=== PATIENT | female | born 1970 | race Caucasian/White ===

== ENCOUNTER → 2016-04-26 | Outpatient (CLI) | payer BC ==
--- NOTE | 2016-04-26 15:20 | WOMENS IMAGING REPORT ---
EXAM DESCRIPTION: BILAT SCREENING MAMMO W/CAD COMPLETED DATE/TIME: 04/26/2016 2:05 pm REASON FOR STUDY: Z12.31, ROUTINE SCREENING MAMMO Z12.31 ENCNTR SCREEN MAMMOGRAM FOR MALIGNANT NEOP LASM OF GOOD COMPARISON: 2011 to 2014 TECHNIQUE: Standard craniocaudal and mediolateral oblique views of each breast recorded using digita l acquisition. LIMITATIONS: None. FINDINGS: No masses, calcifications or architectural distortion. No areas of suspicion. Read with the assistance of CAD. .[facility] - R2 Cenova Version 1.3 .[facility] - R2 Cenova Version 1.3 .[facility] - R2 Cenova Version 2.4 .[facility] - R2 Cenova Version 2.4 .[facility] - R2 Cann[employer] T[employer] Engineer Version 9.2 BREAST DENSITY: b. There are scattered areas of fibroglandular density. BIRAD: 1 NEGATIVE RECOMMENDATION: ROUTINE SCREENING COMMENT: PATIENT NOTIFIED BY LETTER. The [employer] recommends an annual screening mammogram for women aged 40 years or over. Each patient will receive a reminder prior to the anniversary date of her mammogram. The [employer] (ACR) has developed recommendations for screening MRI of the breast s in certain patient populations, to be used in conjunction with mammography. Breast MRI surveillanc e may be appropriate for women with more than 20% lifetime risk of developing breast cancer as deter mined by genetic testing, significant family history of the disease, or history of mantle radiation f or Hodgkins Disease. ACR Practice Guidelines 2008. TECHNICAL DOCUMENTATION: FINDING NUMBER: (1) ASSESSMENT: (1) JOB ID: [id number] [email or web address]- All Rights Reserved
== END ==
LOC: WI 10:53
PROVIDERS: ATTEND Nurse Practitioner Family
DX: Z12.31 Encounter for screening mammogram for malignant neoplasm of breast (principal)
CPT/HCPCS: 77067; G0202

== ENCOUNTER → 2016-06-07 | Outpatient (CLI) | payer BC | LOC: RAD 07:21 | PROVIDERS: ATTEND Family Medicine | DX: M54.5 Low back pain (principal); N20.0 Calculus of kidney | CPT/HCPCS: 74176 ==

== ENCOUNTER 2016-09-18 11:20 | Emergency (ER) | payer BC ==
--- NOTE | 2016-09-18 12:17 | ER Document Report ---
ED Extremity Problem, Lower - General Mode of Arrival: Ambulatory Information source: Patient TRAVEL OUTSIDE OF THE [place] IN LAST 30 DAYS: No - HPI Patient complains to provider of: Swelling - left leg Location: Ankle - left, Knee - left, Leg - left Occurred: Other - 2 nights ago Context: denies: Recent immobilization, Recent surgery, Recent travel Recent injury: No Associated symptoms: Other - see notes above <SYEDA BRADLEY - Last Filed: 09/18/16 12:58> <HAYDEE MEDINA - Last Filed: 09/18/16 13:37> - General Chief Complaint: Leg Swelling Stated Complaint: POSSIBLE CLOT IN LEG Time Seen by Provider: 09/18/16 12:11 Notes: 46-year-old female with no history or family history of blood clots presents to the ED complaining of left leg swelling that started 2 nights ago. Patient reports that she has some pain with palpation around the knee and states that her skin is tight. Patient denies any chest pain or shortness of breath. Patient had a left leg surgery in September 2015 and renal surgery performed in July 2016, but denies any other recent surgeries. Patient denies any recent long travel or periods of immobilization. (SYEDA BRADLEY) - Related Data Allergies/Adverse Reactions: cefaclor [From Ceclor] Allergy (Verified 09/18/16 11:28) cephalexin monohydrate [From Keflex] Allergy (Verified 09/18/16 11:28) clindamycin [Clindamycin] Allergy (Verified 09/18/16 11:28) Penicillins Allergy (Verified 09/18/16 11:28) RASH , SWELLING OF THROAT Sulfa (Sulfonamide Antibiotics) Allergy (Verified 09/18/16 11:28) BEE STINGS Allergy (Uncoded 09/18/16 11:28) Swelling of Throat Past Medical History - General Information source: Patient - Social History Smoking Status: Current Every Day Smoker Chew tobacco use (# tins/day): No Frequency of alcohol use: Rare Drug Abuse: None Family History: Reviewed & Not Pertinent Patient has suicidal ideation: No Patient has homicidal ideation: No - Past Medical History Cardiac Medical History: Reports: Hx Hypercholesterolemia, Hx Hypertension Neurological Medical History: Reports: Hx Migraine. Denies: Hx Cerebrovascular Accident, Hx Seizures Endocrine Medical History: Reports: Hx Diabetes Mellitus Type 2 Renal/ Medical History: Denies: Hx Peritoneal Dialysis GI Medical History: Reports: Hx Hepatitis - HEP B, REC'D VACCINE SINCE FOR HEP A & B. Denies: Hx Ulcer Psychiatric Medical History: Reports: Hx Depression Infectious Medical History: Reports: Hx Hepatitis - HEP B, REC'D VACCINE SINCE FOR HEP A & B Past Surgical History: Reports: Hx Cholecystectomy, Hx Gastric Bypass Surgery, Hx Genitourinary Surgery - 2 kidney stones removed. July 2016, Hx Gynecologic Surgery - c section x 2, Hx Hysterectomy, Hx Orthopedic Surgery - left knee partial September 2015, Hx Tubal Ligation - Immunizations Hx Diphtheria, Pertussis, Tetanus Vaccination: Yes Hx Pneumococcal Vaccination: 04/07/13 <SYEDA BRADLEY - Last Filed: 09/18/16 12:58> Review of Systems - Review of Systems Constitutional: No symptoms reported EENT: No symptoms reported Cardiovascular: No symptoms reported. denies: Chest pain Respiratory: No symptoms reported. denies: Short of breath Gastrointestinal: No symptoms reported Genitourinary: No symptoms reported Female Genitourinary: No symptoms reported Musculoskeletal: See HPI, Leg swelling - left Skin: No symptoms reported Hematologic/Lymphatic: No symptoms reported Neurological/Psychological: No symptoms reported -: Yes All other systems reviewed and negative <SYEDA BRADLEY - Last Filed: 09/18/16 12:58> Physical Exam - General General appearance: Alert In distress: None - Respiratory Respiratory status: No respiratory distress Breath sounds: Normal - Cardiovascular Rhythm: Regular Murmur: Yes - 1/6 systolic murmur Friction rub: No Gallop: None auscultated Pulses: Normal: Dorsalis pedis - Extremities General upper extremity: Normal inspection, Normal ROM General lower extremity: Edema - 1+ pitting edema to the level of the left ankle and trace pitting edema to the level of the left knee., Normal ROM. No: Normal inspection <SYEDA BRADLEY - Last Filed: 09/18/16 12:58> - HEENT Head: Normocephalic, Atraumatic Extraocular movements intact: Yes Mouth/Lips: Normal Mucous membranes: Moist - Neurological Neuro grossly intact: Yes Cognition: Normal Orientation: AAOx4 - Psychological Associated symptoms: Normal affect, Normal mood <HAYDEE MEDINA - Last Filed: 09/18/16 13:37> - Vital signs Vitals: Resp 16 09/18/16 11:57 Course - Laboratory Result Diagrams: 09/18/16 12:50 09/18/16 12:50 <SYEDA BRADLEY - Last Filed: 09/18/16 12:58> - Laboratory Result Diagrams: 09/18/16 12:50 09/18/16 12:50 <HAYDEE MEDINA - Last Filed: 09/18/16 13:37> - Re-evaluation Re-evalutation: 09/18/16 13:36 She has mild leukocytosis of 10.7, she does have anemia with hemoglobin 9.0, platelets normal at 195. Coags normal, chemistries grossly unremarkable, venous Dopplers negative for DVT. Patient has had extensive surgery on this leg , swelling it is most likely dependent edema and related to vascular changes after surgery. Surgery is remote. Patient was counseled on using compression stockings and elevation. Increasing her walking. Will return for repeat ultrasound in 1 week should the pain and swelling continued. No evidence of compartment syndrome at this time. (HAYDEE MEDINA) - Vital Signs Vital signs: Temp Pulse Resp BP Pulse Ox 16 09/18/16 11:57 - Laboratory Laboratory results interpreted by me: 09/18/16 09/18/16 12:50 12:50 WBC 10.7 H Hgb 9.0 L Hct 29.5 L MCV 77 L MCH 23.3 L MCHC 30.4 L RDW 20.1 H Sodium 134.9 L Calcium 8.1 L Total Protein 6.2 L Albumin 3.3 L Discharge <SYEDA BRADLEY - Last Filed: 09/18/16 12:58> <HAYDEE MEDINA - Last Filed: 09/18/16 13:37> - Discharge Clinical Impression: Leg edema, left Condition: Stable Disposition: HOME, SELF-CARE Additional Instructions: There was no blood clot on your evaluation today. Should you continue to have swelling and pain in 1 week please return for repeat ultrasound. It is possible to miss a blood clot on the first ultrasound. You are anemic (your blood count is low). You will need to follow-up with your primary care physician to have this rechecked within the next month. Crystal Attestation: 09/18/16 13:37 I personally performed the services described in the documentation, reviewed and edited the documentation which was dictated to the scribe in my presence, and it accurately records my words and actions. (HAYDEE MEDINA) Scribe Documentation - Scribe Written by Crystal:: Crystal Abernathy, 09/18/2016 1323 acting as scribe for :: Na <SYEDA BRADLEY - Last Filed: 09/18/16 12:58>
[2016-09-18 13:07] LABS: ABSOLUTE BASOPHILS # (AUTO) 0.1 10^3/uL (0.0-0.2); ABSOLUTE EOSINOPHILS # (AUTO) 0.2 10^3/uL (0.0-0.6); ABSOLUTE LYMPHOCYTES (AUTO) 1.6 10^3/uL (0.5-4.7); ABSOLUTE MONOCYTES (AUTO) 1.1 10^3/uL (0.1-1.4); ABSOLUTE NEUT (AUTO) 7.8 10^3/uL (1.7-8.2); BASOPHILS % (AUTO) 0.5 % (0-2); EOSINOPHILS % (AUTO) 1.4 % (0-6); HEMATOCRIT 29.5 % (36.0-47.0); HGB HCT DIFFERENCE -2.5; LYMPHOCYTES % (AUTO) 14.7 % (13-45); MEAN CORPUSCULAR HEMOGLOBIN 23.3 pg (27.0-33.4); MEAN CORPUSCULAR HGB CONC 30.4 g/dL (32.0-36.0); MEAN CORPUSCULAR VOLUME 77 fl (80-97); MONOCYTES % (AUTO) 10.2 % (3-13); RED BLOOD COUNT 3.86 10^6/uL (3.72-5.28); RED CELL DISTRIBUTION WIDTH 20.1 % (11.5-14.0); SEGMENTED NEUTROPHILS % (AUTO) 73.2 % (42-78); WHITE BLOOD COUNT 10.7 10^3/uL (4.0-10.5)
[2016-09-18 13:13] LABS: PROTHROMBIN TIME 13.3 SEC (11.4-15.4)
[2016-09-18 13:23] LABS: ALANINE AMINOTRANSFERASE 16 U/L (9-52); ALBUMIN 3.3 g/dL (3.5-5.0); ALKALINE PHOSPHATASE 63 U/L (38-126); ANION GAP 8 (5-19); ASPARTATE AMINO TRANSFERASE 16 U/L (14-36); BILIRUBIN,DIRECT 0.4 mg/dL (0.0-0.4); BILIRUBIN,TOTAL 0.4 mg/dL (0.2-1.3); BLOOD UREA NITROGEN 11 mg/dL (7-20); CALCIUM 8.1 mg/dL (8.4-10.2); CARBON DIOXIDE 23 mmol/L (22-30); CHLORIDE 104 mmol/L (98-107); CREATININE RESULT 0.66 mg/dL (0.52-1.25); GLUCOSE 91 mg/dL (75-110); POTASSIUM 4.3 mmol/L (3.6-5.0); SODIUM 134.9 mmol/L (137-145); TOTAL PROTEIN 6.2 g/dL (6.3-8.2)
[2016-09-18 13:39] VITALS: BP 117/65
--- NOTE | 2016-09-18 16:01 | XCELERA REPORT ---
[address] [address] Lower Extremity Venous Evaluation Name: GUILHERME RICHARDS Age: 46 yrs Gender: Female : 1970 Patient Status: Emergency Patient Location: ER Study Date: 09/18/2016 01:03 PM Procedure: Color flow and duplex imaging of the veins of the left lower extremity as well as the right Common Femoral vein. Reason For Study: left leg swelling Ordering Physician: HAYDEE MEDINA Performed By: Natasha Holliday Right Sided Venous Evaluation The right common femoral vein is fully compressible. Spontaneous and phasic flow is present in the right common femoral vein. Left Sided Venous Evaluation Normal vessel filling wall to wall, compression and augmentation as well as Colour flow down to the infrageniculate veins. Interpretation Summary No duplex evidence of DVT or obstruction in the left lower extremity nor in the right Common Femoral vein. : HAYDEE MEDINA > Herbie Uribe
== END 2016-09-18 13:39 | disposition home or self-care (01) ==
LOC: ER 11:20
DX: R60.0 Localized edema (principal); M79.89 Other specified soft tissue disorders; F17.200 Nicotine dependence, unspecified, uncomplicated
CPT/HCPCS: 36415; 80053; 85025; 85610; 93971; 99284

== ENCOUNTER → 2016-09-20 | Outpatient (CLI) | payer BC ==
--- NOTE | 2016-09-22 09:04 | RADIOLOGY REPORT (SQ) ---
EXAM DESCRIPTION: MRI CERVICAL SPINE WITHOUT COMPLETED DATE/TIME: 09/20/2016 6:07 pm REASON FOR STUDY: RADICULOPATHY, LUMBOSACRAL REGION, CERVICAL REGION M54.17 RADICULOPATHY, LUMBOSAC RAL REGION COMPARISON: None. TECHNIQUE: Sagittal and Axial imaging includes T1, T2, STIR and gradient echo sequences. LIMITATIONS: None. FINDINGS: ALIGNMENT: Normal. VERTEBRAE: Intact. BONE MARROW: Normal. No marrow replacement or reactive changes. DISCS: Normal. No significant abnormal signal or loss of height. HARDWARE: None in the spine. CORD AND BASE OF BRAIN: Normal in size and signal intensity. SOFT TISSUES: No soft tissue masses. C1-C2: No significant spinal stenosis. C2-C3: No significant spinal stenosis or exit foraminal stenosis. C3-C4: No significant spinal stenosis or exit foraminal stenosis. C4-C5: No significant spinal stenosis or exit foraminal stenosis. C5-C6: No significant spinal stenosis or exit foraminal stenosis. C6-C7: No significant spinal stenosis or exit foraminal stenosis. C7-T1: No significant spinal stenosis or exit foraminal stenosis. UPPER THORACIC: Incompletely imaged. No significant spinal stenosis or exit foraminal stenosis. OTHER: No other significant finding. IMPRESSION: NORMAL MRI CERVICAL SPINE. TECHNICAL DOCUMENTATION: JOB ID: [id number] [employer]- All Rights Reserved
--- NOTE | 2016-09-22 09:07 | RADIOLOGY REPORT (SQ) ---
EXAM DESCRIPTION: MRI LUMBAR SPINE WITHOUT COMPLETED DATE/TIME: 09/20/2016 6:07 pm REASON FOR STUDY: RADICULOPATHY, LUMBOSACRAL REGION, CERVICAL REGION M54.17 RADICULOPATHY, LUMBOSAC RAL REGION COMPARISON: None. TECHNIQUE: Sagittal and Axial imaging includes T1, T2, STIR and gradient echo sequences. Coronal T2/ HASTE imaging. LIMITATIONS: None. FINDINGS: VISUALIZED UPPER ABDOMEN: Limited evaluation. No acute or suspicious findings suggested. SEGMENTATION: No transitional anatomy. The lowest well-developed disc space is labeled L5-S1. ALIGNMENT: Anatomic. VERTEBRAE: Intact. BONE MARROW: Normal. No marrow replacement or reactive changes. DISC SIGNAL: Normal. No significant abnormal signal or loss of height. POSTERIOR ELEMENTS: Generally intact. No pars defect evident. HARDWARE: None in the spine. CORD AND CONUS: Normal in size and signal intensity. Conus at the appropriate level. SOFT TISSUES: No aortic aneurysm seen. No bulky retroperitoneal adenopathy or mass. No paraspinal mas s or fluid. L1-L2: No significant spinal stenosis or exit foraminal stenosis. L2-L3: No significant spinal stenosis or exit foraminal stenosis. L3-L4: No significant spinal stenosis or exit foraminal stenosis. L4-L5: No significant spinal stenosis or exit foraminal stenosis. L5-S1: No significant spinal stenosis or exit foraminal stenosis. LOWER THORACIC: Incompletely imaged. No stenosis seen. SACRUM: Visualized upper sacrum intact. OTHER: No other significant findings. IMPRESSION: NORMAL MRI LUMBAR SPINE. TECHNICAL DOCUMENTATION: JOB ID: [id number] [employer]- All Rights Reserved
== END ==
LOC: RAD 16:33
PROVIDERS: ATTEND Physician Assistant
DX: M54.17 Radiculopathy, lumbosacral region (principal); M54.12 Radiculopathy, cervical region
CPT/HCPCS: 72141; 72148

== ENCOUNTER 2017-04-16 16:28 | Emergency (ER) | payer SELFPAY ==
--- NOTE | 2017-04-16 17:46 | ER Document Report ---
HPI - HPI Pain Level: 2 Context: 47 yo diabetic female c/o redness, swelling and pain to left middle and ring fingers x several weeks. Associated Symptoms: None Exacerbated by: Denies Relieved by: Denies - ROS Systems Reviewed and Negative: Yes All other systems reviewed and negative - REPRODUCTIVE Reproductive: DENIES: : Past Medical History - General Information source: Patient - Social History Smoking Status: Current Every Day Smoker Frequency of alcohol use: None Drug Abuse: None Lives with: Family Family History: Reviewed & Not Pertinent - Past Medical History Cardiac Medical History: Reports: Hx Hypercholesterolemia, Hx Hypertension Neurological Medical History: Reports: Hx Migraine. Denies: Hx Cerebrovascular Accident, Hx Seizures Endocrine Medical History: Reports: Hx Diabetes Mellitus Type 2 Renal/ Medical History: Denies: Hx Peritoneal Dialysis GI Medical History: Reports: Hx Hepatitis - HEP B, REC'D VACCINE SINCE FOR HEP A & B. Denies: Hx Ulcer Psychiatric Medical History: Reports: Hx Depression Infectious Medical History: Reports: Hx Hepatitis - HEP B, REC'D VACCINE SINCE FOR HEP A & B Past Surgical History: Reports: Hx Cholecystectomy, Hx Gastric Bypass Surgery, Hx Genitourinary Surgery - 2 kidney stones removed. July 2016, Hx Gynecologic Surgery - c section x 2, Hx Hysterectomy, Hx Orthopedic Surgery - left knee partial September 2015, Hx Tubal Ligation - Immunizations Hx Diphtheria, Pertussis, Tetanus Vaccination: Yes Hx Pneumococcal Vaccination: 04/07/13 Vertical Provider Document - CONSTITUTIONAL Agree With Documented VS: Yes Exam Limitations: No Limitations - INFECTION CONTROL TRAVEL OUTSIDE OF THE [place] IN LAST 30 DAYS: No - HEENT HEENT: Atraumatic, PERRLA - NECK Neck: Normal Inspection, Supple - RESPIRATORY O2 Sat by Pulse Oximetry: 96 - CARDIOVASCULAR Cardiovascular: Regular Rate, Regular Rhythm - NEURO Level of Consciousness: Awake, Alert, Appropriate - DERM Integumentary: Rash - 2 cm deep abrasion to left middle finger over proximal phalange and PIP. + draining paronychia to left ring finger. no felon. + erythema to lateral nail border Course - Re-evaluation Re-evalutation: 04/16/17 17:48 wound culture obtained. no sign of sepsis. no sign of joint infection. no circulatory compromise. home care, F/U with PCP, ED return precautions discussed with pt. pt agreeable with plan and stable for discharge 04/16/17 18:01 - Vital Signs Vital signs: Temp Pulse Resp BP Pulse Ox 98.4 F 78 16 145/72 H 96 04/16/17 16:41 04/16/17 16:41 04/16/17 16:41 04/16/17 16:41 04/16/17 16:41 Discharge - Discharge Clinical Impression: Paronychia, Cellulitis of finger of left hand Condition: Stable Disposition: HOME, SELF-CARE Instructions: Antibiotic Ointment Protection ([facility]), Antibiotic Therapy ([facility]), Cellulitis ([facility]), Paronychia ([facility]), Soap Cleansing ([facility]) Additional Instructions: wash wound with antibacterial soap and water apply antibiotic ointment and bandaid after cleaning take antibiotic as prescribed follow up with primary care return to ER for any worsening Prescriptions: Doxycycline Hyclate [Vibramycin] 100 mg PO BID #14 capsule Forms: Return to Work
[2017-04-16 18:11] VITALS: BP 140/69
== END 2017-04-16 18:10 | disposition home or self-care (01) ==
LOC: ER 16:28
DX: L03.012 Cellulitis of left finger (principal); R21 Rash and other nonspecific skin eruption; F17.200 Nicotine dependence, unspecified, uncomplicated; E78.00 Pure hypercholesterolemia, unspecified; I10 Essential (primary) hypertension; Z86.19 Personal history of other infectious and parasitic diseases
CPT/HCPCS: 87070; 87075; 87077; 87186; 87205; 99283

== ENCOUNTER 2017-04-26 14:36 | Emergency (ER) | payer BC ==
[2017-04-26] MEDS ORDERED: BUPIVACAINE HCL 0.5 % INJ/PF 30 ML SDV INJ ONE (15:34)
[2017-04-26] MEDS ORDERED: LIDOCAINE 1% INJ-PF (10 MG/ML) 30 ML SDV INJ ONE (15:34)
--- NOTE | 2017-04-26 15:38 | ER Document Report ---
ED Skin Rash/Insect Bite/Abscs - General Chief Complaint: Skin Problem Stated Complaint: LEFT HAND PAIN Time Seen by Provider: 04/26/17 15:26 Mode of Arrival: Ambulatory Information source: Patient TRAVEL OUTSIDE OF THE [place] IN LAST 30 DAYS: No - HPI Patient complains to provider of: Tender/swollen area Onset: Yesterday Quality of pain: Achy Severity: Moderate Notes: Patient arrives with complaints of pain to the left ring finger nail. Patient was seen here 10 days ago with paronychia which she had drained and was placed on doxycycline. She states that the infection around her fingernail has significantly improved. A few days ago part of her left ring finger nail became detached from the nail bed and she clipped it off but she has a piece that remains in place which is causing her pain. She denies fevers. She denies any numbness, tingling, weakness. She denies any nausea, vomiting, diarrhea. She denies any new injuries. She denies any difficulty with flexion or extension of the finger. She has no other complaints at this time. She would like the remainder of her nail to be removed as it keeps catching on things and is causing her pain. - Related Data Allergies/Adverse Reactions: cefaclor [From Ceclor] Allergy (Verified 04/16/17 16:32) cephalexin monohydrate [From Keflex] Allergy (Verified 04/16/17 16:32) clindamycin [Clindamycin] Allergy (Verified 04/16/17 16:32) Penicillins Allergy (Verified 04/16/17 16:32) RASH , SWELLING OF THROAT Sulfa (Sulfonamide Antibiotics) Allergy (Verified 04/16/17 16:32) BEE STINGS Allergy (Uncoded 04/16/17 16:32) Swelling of Throat Past Medical History - Social History Smoking Status: Unknown if Ever Smoked Family History: Reviewed & Not Pertinent - Past Medical History Cardiac Medical History: Reports: Hx Hypercholesterolemia, Hx Hypertension Neurological Medical History: Reports: Hx Migraine. Denies: Hx Cerebrovascular Accident, Hx Seizures Endocrine Medical History: Reports: Hx Diabetes Mellitus Type 2 Renal/ Medical History: Denies: Hx Peritoneal Dialysis GI Medical History: Reports: Hx Hepatitis - HEP B, REC'D VACCINE SINCE FOR HEP A & B. Denies: Hx Ulcer Psychiatric Medical History: Reports: Hx Depression Infectious Medical History: Reports: Hx Hepatitis - HEP B, REC'D VACCINE SINCE FOR HEP A & B Past Surgical History: Reports: Hx Cholecystectomy, Hx Gastric Bypass Surgery, Hx Genitourinary Surgery - 2 kidney stones removed. July 2016, Hx Gynecologic Surgery - c section x 2, Hx Hysterectomy, Hx Orthopedic Surgery - left knee partial September 2015, Hx Tubal Ligation - Immunizations Hx Diphtheria, Pertussis, Tetanus Vaccination: Yes Hx Pneumococcal Vaccination: 04/07/13 Review of Systems - Review of Systems -: Yes All other systems reviewed and negative Physical Exam - Vital signs Vitals: Temp Pulse Resp BP Pulse Ox 98.0 F 66 14 147/70 H 95 04/26/17 14:56 04/26/17 14:56 04/26/17 14:56 04/26/17 14:56 04/26/17 14:56 - Notes Notes: GENERAL: alert, cooperative, nontoxic, no distress. HEAD: normocephalic, atraumatic EYES: conjunctiva pink without discharge, no external redness or swelling. EARS: no external swelling, no external redness NOSE: atraumatic, no external swelling MOUTH/THROAT: mucous membranes moist and pink NECK: soft, supple, full range of motion, no meningismus. CHEST: no distress, lungs clear and equal throughout. No wheezing, rales, rhonchi. CARDIAC: regular rate and rhythm, no murmur, normal capillary refill, normal pulses. BACK: full range of motion, no CVA tenderness. EXTREMITIES: Small portion of nail left within the left ring finger. Healing skin around the base of the nail with no sign of felon. Normal cap refill and sensation. Mild tenderness to palpation of this area. Full range of motion of the finger with no sign of tenosynovitis. There is no redness streaking up the finger or hand. Compartments are soft. NEURO: alert and oriented 3, no focal deficits, full range of motion of all extremities. PYSCH: appropriate mood, affect. Patient is cooperative. SKIN: pink, warm, dry, no rash. Course - Re-evaluation Re-evalutation: 04/26/17 17:07 Patient is nontoxic appearing with stable vitals. Patient was seen here 10 days ago and had an infected left ring finger paronychia was placed on doxycycline. Things seem to heal quite nicely. Due to the fact that she had the nail infection, most of her nail had fallen off. She had one piece that was left that was causing her pain which she wanted removed. After digital block I was able to remove the portion of nail left. The wound appears to be healing quite nicely with no signs of infection currently. No redness or streaking up the finger or hand. No sign of tenosynovitis or felon. Patient will be discharged home with 5 days of doxycycline prophylactically. Follow-up for increased pain, fever, redness, drainage, any further concerns. The patient is noted to have elevated blood pressure during today's emergency department visit. The patient was informed of this finding. The patient was instructed that this may be related to pre-hypertension and requires further evaluation with a primary care provider. The patient has no hypertensive symptoms at this time. The patient's emergency department workup and current diagnosis were explained to the patient and or family. Follow-up instructions were provided. Medications if prescribed were discussed. Instructions for when to return to the emergency department including specific worrisome symptoms were discussed with the patient and/or family. - Vital Signs Vital signs: Temp Pulse Resp BP Pulse Ox 98.0 F 66 14 147/70 H 95 04/26/17 14:56 04/26/17 14:56 04/26/17 14:56 04/26/17 14:56 04/26/17 14:56 Procedures - Nail Trephanation/Removal left ring finger Notes: 04/26/17 17:09 Digital block performed with 1% lidocaine and half percent bupivacaine. Skin was prepped with Shur-Clens and the remainder of the nail was removed from the left ring finger. No pus or drainage noted with removal. Patient tolerated the procedure well with no immediate complications. Sterile dressing was applied to the area. Normal cap refill post procedure. Discharge - Discharge Clinical Impression: Ingrown nail Condition: Stable Disposition: HOME, SELF-CARE Instructions: Ingrown Nail ([facility]) Additional Instructions: Keep wound clean and dry. Soak wound in soapy warm water. Follow-up for increased pain, fever, numbness, tingling, weakness, increased redness, or for any further concerns. Your blood pressure was elevated during today's visit. Have this rechecked with your doctor. Prescriptions: Doxycycline Hyclate 100 mg PO BID #10 capsule Forms: Elevated Blood Pressure, Smoking Cessation Education
[2017-04-26 17:19] VITALS: BP 122/71
== END 2017-04-26 17:19 | disposition home or self-care (01) ==
LOC: ER 14:36
PROC: 0HBQXZZ Excision of Finger Nail, External Approach (ICD-10-PCS; principal; 2017-04-26)
DX: L60.0 Ingrowing nail (principal); M79.642 Pain in left hand
CPT/HCPCS: 99283; 11750; J3490

== ENCOUNTER 2017-05-09 10:13 | Emergency (ER) | payer BC ==
[2017-05-09] MEDS ORDERED: LEVOFLOXACIN 500 MG TABLET PO ONE (11:19)
[2017-05-09] MEDS ORDERED: BUTALB/ACETAMINOPHEN/CAFFEINE 1 TAB EACH PO ONE (11:19)
--- NOTE | 2017-05-09 11:22 | ER Document Report ---
HPI - HPI Patient complains to provider of: Finger infection Onset: Other - 04/16/2017 Onset/Duration: Persistent, Better Quality of pain: Achy Pain Level: 2 Context: Patient states that she has been treated for a finger infection since 16 April. Patient states that it started after pulling on the cuticle that got infected. Patient does have a history of diabetes. Patient denies any fever. Patient states that the finger has been mildly red and has had some purulent drainage. Patient does complain of headache pain to the occipital area and describes this as a typical tension headache that she has. Patient states she normally takes Fioricet to help with her headaches but is out of this medication at this time. Patient complains of increased stress which she feels is prompting her headaches. Patient states her stress is due to her son's heroin addiction. Patient with multiple drug allergies. Patient had last taken doxycycline. Associated Symptoms: Headache, Other - Left fourth finger tenderness. denies: Fever, Vomiting Exacerbated by: Movement Relieved by: Denies Similar symptoms previously: Yes Recently seen / treated by doctor: Yes - ROS ROS below otherwise negative: Yes Systems Reviewed and Negative: Yes All other systems reviewed and negative - CONSTITUTIONAL Constitutional: DENIES: Fever, Chills - NEURO Neurology: REPORTS: Headache. DENIES: Weakness, Vision blurred, Dizzinesss / Vertigo - GASTROINTESTINAL Gastrointestinal: REPORTS: Nausea. DENIES: Patient vomiting - REPRODUCTIVE Reproductive: DENIES: : - MUSCULOSKELETAL Musculoskeletal: REPORTS: Extremity pain - DERM Skin Color: Normal Past Medical History - General Information source: Patient - Social History Smoking Status: Current Every Day Smoker Chew tobacco use (# tins/day): No Frequency of alcohol use: Rare Drug Abuse: None Occupation: [employer] Lives with: Family Family History: Reviewed & Not Pertinent Patient has suicidal ideation: No Patient has homicidal ideation: No - Past Medical History Cardiac Medical History: Reports: Hx Hypercholesterolemia, Hx Hypertension Neurological Medical History: Reports: Hx Migraine. Denies: Hx Cerebrovascular Accident, Hx Seizures Endocrine Medical History: Reports: Hx Diabetes Mellitus Type 2 Renal/ Medical History: Denies: Hx Peritoneal Dialysis GI Medical History: Reports: Hx Hepatitis - HEP B, REC'D VACCINE SINCE FOR HEP A & B. Denies: Hx Ulcer Psychiatric Medical History: Reports: Hx Depression Infectious Medical History: Reports: Hx Hepatitis - HEP B, REC'D VACCINE SINCE FOR HEP A & B Past Surgical History: Reports: Hx Cholecystectomy, Hx Gastric Bypass Surgery, Hx Genitourinary Surgery - 2 kidney stones removed. July 2016, Hx Gynecologic Surgery - c section x 2, Hx Hysterectomy, Hx Orthopedic Surgery - left knee partial September 2015, Hx Tubal Ligation - Immunizations Hx Diphtheria, Pertussis, Tetanus Vaccination: Yes Hx Pneumococcal Vaccination: 04/07/13 Vertical Provider Document - CONSTITUTIONAL Agree With Documented VS: Yes Exam Limitations: No Limitations General Appearance: WD/WN, No Apparent Distress - INFECTION CONTROL TRAVEL OUTSIDE OF THE [place] IN LAST 30 DAYS: No - HEENT HEENT: Atraumatic, Normal ENT Exam, Normocephalic - NECK Neck: Supple Notes: Patient with posterior cervical paraspinal tenderness, no midline tenderness, step-off or deformity. No meningismus - RESPIRATORY Respiratory: Breath Sounds Normal, No Respiratory Distress - CARDIOVASCULAR Cardiovascular: Regular Rate, Regular Rhythm, No Murmur Pulses: Normal: Radial - BACK Back: Normal Inspection - MUSCULOSKELETAL/EXTREMETIES Musculoskeletal/Extremeties: MAEW, Tender - Tenderness to left fourth fingertip. Nail removed, patient with minimal yellow drainage from wound bed. Minimal erythema to fingertip. No concern for felon., Edema - NEURO Level of Consciousness: Awake, Alert, Appropriate Motor/Sensory: No Motor Deficit - DERM Integumentary: Warm, Dry Notes: Paronychia left fourth finger Course - Re-evaluation Re-evalutation: 05/09/17 11:[address] Clements regarding patient management. Does agree with placing patient on Levaquin after reviewing her wound culture. Discussed side effect profile of medication risk for tendon rupture. Patient verbalized understanding and is agreeable to this plan of care at this time. The patient has been informed that they may have pre-hypertension or hypertension based on a blood pressure reading in the emergency department. I recommend that patient call the primary care provider listed on their discharge instructions or a physician of their choice by this week to arrange follow-up for further evaluation of possible pre-hypertension or hypertension. Controlled substance database reviewed Discharge - Discharge Clinical Impression: Paronychia of finger of left hand, Hx of essential hypertension Headache Qualifiers: Headache type: unspecified Headache chronicity pattern: acute headache Intractability: not intractable Qualified Code(s): R51 - Headache Condition: Stable Disposition: HOME, SELF-CARE Instructions: Headache ([facility]), Levofloxacin, Paronychia ([facility]) Additional Instructions: Return immediately for any new or worsening symptoms Followup with your primary care provider, call tomorrow to make a followup appointment Prescriptions: Butalb/Acetaminophen/Caffeine [Fioricet (50-325-40 mg) Tablet] 1 - 2 tab PO Q4H PRN #8 each PRN Reason: Levofloxacin [Levaquin 500 mg Tablet] 500 mg PO DAILY #6 tablet Forms: Elevated Blood Pressure, Smoking Cessation Education, Restricted Release , Return to Work Referrals: JAMAR PETTY NP [Primary Care Provider] - Follow up as needed
[2017-05-09 11:43] VITALS: BP 150/73
== END 2017-05-09 11:42 | disposition home or self-care (01) ==
LOC: ER 10:13
DX: L03.012 Cellulitis of left finger (principal); R51 Headache; I10 Essential (primary) hypertension; F17.200 Nicotine dependence, unspecified, uncomplicated; E78.00 Pure hypercholesterolemia, unspecified; E11.9 Type 2 diabetes mellitus without complications; Z87.442 Personal history of urinary calculi; Z90.710 Acquired absence of both cervix and uterus; Z98.84 Bariatric surgery status
CPT/HCPCS: 99282; J3490

== ENCOUNTER → 2017-05-21 | Outpatient (CLI) | payer BC ==
--- NOTE | 2017-05-21 08:51 | RADIOLOGY REPORT (SQ) ---
EXAM DESCRIPTION: KNEE RIGHT 3 VIEWS COMPLETED DATE/TIME: 05/21/2017 8:31 am REASON FOR STUDY: RIGHT KNEE PAIN (M25.561) M25.552 PAIN IN LEFT HIP M25.561 PAIN IN RIGHT KNEE COMPARISON: None. NUMBER OF VIEWS: Four views. TECHNIQUE: AP, lateral, and both oblique radiographic images acquired of the right knee. LIMITATIONS: None. FINDINGS: MINERALIZATION: Normal. BONES: There is osteophytic change of the lateral knee joint. Osteophytic change patellofemoral join t seen. JOINT: No effusion. SOFT TISSUES: No soft tissue swelling. No radio-opaque foreign body. IMPRESSION: Degenerative arthritis right knee. TECHNICAL DOCUMENTATION: JOB ID: [id number] 2010 [employer]- All Rights Reserved
--- NOTE | 2017-05-21 08:53 | RADIOLOGY REPORT (SQ) ---
EXAM DESCRIPTION: HIP LEFT AP/LATERAL COMPLETED DATE/TIME: 05/21/2017 8:31 am REASON FOR STUDY: LEFT HIP PAIN (M25.552) M25.552 PAIN IN LEFT HIP M25.561 PAIN IN RIGHT KNEE COMPARISON: None. NUMBER OF VIEWS: Two views. TECHNIQUE: AP pelvis and additional frog-leg view of the left hip. LIMITATIONS: None. FINDINGS: Minimal osteophytic change left femoral head suggesting degenerative arthritis. The SI david ints are symmetrical. Otherwise no acute fracture or bony abnormality seen. IMPRESSION: Minimal degenerative arthritis left hip. TECHNICAL DOCUMENTATION: JOB ID: [id number] 2010 [employer]- All Rights Reserved
== END ==
LOC: RAD 07:58
PROVIDERS: ATTEND Physician Assistant
DX: M25.552 Pain in left hip (principal); M25.561 Pain in right knee

== ENCOUNTER 2017-05-26 17:18 | Emergency (ER) | payer OTHER, BC ==
[2017-05-26] MEDS ORDERED: BUTALB/ACETAMINOPHEN/CAFFEINE 1 TAB EACH PO ONE (18:00)
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
[2017-05-26 19:59] VITALS: BP 165/91
== END 2017-05-26 20:00 | disposition home or self-care (01) ==
LOC: ER 17:18
DX: M62.830 Muscle spasm of back (principal); M54.2 Cervicalgia; M25.519 Pain in unspecified shoulder; Z79.899 Other long term (current) drug therapy; V87.7XXA Person injured in collision between other specified motor vehicles (traffic), initial encounter; F17.200 Nicotine dependence, unspecified, uncomplicated
CPT/HCPCS: 99284; 72125; J3490

== ENCOUNTER → 2017-07-03 | Outpatient (CLI) | payer BC ==
--- NOTE | 2017-07-03 10:30 | RADIOLOGY REPORT (SQ) ---
EXAM DESCRIPTION: MRI RT LOWER JOINT WITHOUT COMPLETED DATE/TIME: 07/03/2017 9:32 am REASON FOR STUDY: PAIN IN R KNEE M25.552 PAIN IN LEFT HIP M25.561 PAIN IN RIGHT KNEE COMPARISON: Right knee three views 05/21/2017 TECHNIQUE: Rightknee images acquired and stored on PACS. Multiplanar images include fat sensitive s equences as T1, water sensitive sequences as FST2 or STIR, cartilage sensitive sequences as FSPD, and gradient echo sequences. LIMITATIONS: None. FINDINGS: JOINT AND BURSAE: No effusion. BONE CORTEX AND MARROW: No alteration of signal to suggest marrow replacement. No worrisome bone lesi ons. No occult fracture. ACL: Intact. No degeneration or ganglion cyst. PCL: Intact. Multi septated ganglion cyst 3 x 1 x 1.3 cm in size along the dorsal aspect of the dist al posterior cruciate ligament best shown on coronal image 17 and sagittal image 10. MCL: Intact. No periligamentous edema or fluid. LCL: Intact. No periligamentous edema or fluid. MEDIAL MENISCUS: No tears. No abnormal signal. LATERAL MENISCUS: Horizontal tear mid body and posterior horn lateral meniscus on coronal images 15-1 7. MEDIAL COMPARTMENT: Cartilage preserved. No bone bruises or reactive marrow edema. No osteophytes. LATERAL COMPARTMENT: Mild chondromalacia. No bone bruises or reactive marrow edema. No osteophytes. PATELLA: High-grade lateral patellar facet chondromalacia, best shown on axial image 7. No subchondra l cysts. Medial and lateral retinacula intact. EXTENSOR MECHANISM: Intact. Quadriceps and patella tendons normal. SOFT TISSUES: Adjacent muscles and subcutaneous tissues normal. Normal flow void in popliteal artery and vein. OTHER: No other significant finding. IMPRESSION: Horizontal tear mid body and posterior horn lateral meniscus High-grade chondromalacia lateral patellar facet Small ganglion along the dorsal aspect of the distal attachment posterior cruciate ligament TECHNICAL DOCUMENTATION: JOB ID: [id number] [employer]- All Rights Reserved Reading location - IP/workstation name: [email or web address]
== END ==
LOC: RAD 08:23
PROVIDERS: ATTEND Physician Assistant
DX: M25.561 Pain in right knee (principal); M25.552 Pain in left hip; M22.41 Chondromalacia patellae, right knee

== ENCOUNTER 2017-07-22 19:42 | Emergency (ER) | payer BC, OTHER ==
--- NOTE | 2017-07-22 21:46 | RADIOLOGY REPORT (SQ) ---
EXAM DESCRIPTION: CHEST 2 VIEWS COMPLETED DATE/TIME: 07/22/2017 8:31 pm REASON FOR STUDY: cough COMPARISON: None. EXAM PARAMETERS: NUMBER OF VIEWS: two views TECHNIQUE: Digital Frontal and Lateral radiographic views of the chest acquired. RADIATION DOSE: NA LIMITATIONS: none FINDINGS: LUNGS AND PLEURA: No opacities, masses or pneumothorax. No pleural effusion. MEDIASTINUM AND HILAR STRUCTURES: No masses or contour abnormalities. HEART AND VASCULAR STRUCTURES: Heart normal size. No evidence for failure. BONES: No acute findings. HARDWARE: None in the chest. OTHER: No other significant finding. IMPRESSION: NO ACUTE RADIOGRAPHIC FINDING IN THE CHEST. TECHNICAL DOCUMENTATION: JOB ID: [id number] [employer]- All Rights Reserved Reading location - IP/workstation name: [email or web address]
[2017-07-22] MEDS ORDERED: IPRATROPIUM/ALBUTEROL 0.5-2.5 MG/3 ML AMPUL NEB ONE (23:03)
[2017-07-22] MEDS ORDERED: PREDNISONE 20 MG TABLET PO ONE (23:03)
--- NOTE | 2017-07-22 23:09 | ER Document Report ---
ED Respiratory Problem - General Chief Complaint: Chest Congestion Stated Complaint: CHEST CONGESTION Time Seen by Provider: 07/22/17 22:51 Mode of Arrival: Ambulatory Information source: Patient TRAVEL OUTSIDE OF THE [place] IN LAST 30 DAYS: No - HPI Patient complains to provider of: Cough Notes: Patient is here with complaints of cough, chest congestion, intermittent wheezing for the last week. She states that symptoms seem to be getting somewhat worse. She denies any fevers. She denies any chest pain. She denies any significant trouble breathing. No leg pain or swelling. No recent long trips or surgery, trauma, immobilization, hormones, cancer, history of DVT or PE. She is a smoker. She denies any chronic lung disease. She denies any abdominal pain. No nausea, vomiting, diarrhea. Nothing seems to make her symptoms better or worse. - Related Data Allergies/Adverse Reactions: cefaclor [From Ceclor] Allergy (Verified 04/16/17 16:32) cephalexin monohydrate [From Keflex] Allergy (Verified 04/16/17 16:32) clindamycin [Clindamycin] Allergy (Verified 04/16/17 16:32) Penicillins Allergy (Verified 04/16/17 16:32) RASH , SWELLING OF THROAT Sulfa (Sulfonamide Antibiotics) Allergy (Verified 04/16/17 16:32) BEE STINGS Allergy (Uncoded 04/16/17 16:32) Swelling of Throat Past Medical History - Social History Smoking Status: Current Every Day Smoker Chew tobacco use (# tins/day): No Frequency of alcohol use: None Drug Abuse: None Family History: Reviewed & Not Pertinent Patient has suicidal ideation: No Patient has homicidal ideation: No - Past Medical History Cardiac Medical History: Reports: Hx Hypercholesterolemia, Hx Hypertension Neurological Medical History: Reports: Hx Migraine. Denies: Hx Cerebrovascular Accident, Hx Seizures Endocrine Medical History: Reports: Hx Diabetes Mellitus Type 2 Renal/ Medical History: Denies: Hx Peritoneal Dialysis GI Medical History: Reports: Hx Hepatitis - HEP B, REC'D VACCINE SINCE FOR HEP A & B. Denies: Hx Ulcer Psychiatric Medical History: Reports: Hx Depression Infectious Medical History: Reports: Hx Hepatitis - HEP B, REC'D VACCINE SINCE FOR HEP A & B Past Surgical History: Reports: Hx Cholecystectomy, Hx Gastric Bypass Surgery, Hx Genitourinary Surgery - 2 kidney stones removed. July 2016, Hx Gynecologic Surgery - c section x 2, Hx Hysterectomy, Hx Orthopedic Surgery - left knee partial September 2015, Hx Tubal Ligation - Immunizations Hx Diphtheria, Pertussis, Tetanus Vaccination: Yes Hx Pneumococcal Vaccination: 04/07/13 Review of Systems - Review of Systems -: Yes All other systems reviewed and negative Physical Exam - Vital signs Vitals: Temp Pulse Resp BP Pulse Ox 98.5 F 72 19 130/62 H 96 07/22/17 20:04 07/22/17 20:04 07/22/17 20:04 07/22/17 20:04 07/22/17 20:04 - Notes Notes: GENERAL: alert, cooperative, nontoxic, no distress. HEAD: normocephalic, atraumatic EYES: conjunctiva pink without discharge, no external redness or swelling. EARS: no external swelling, no external redness, no mastoid redness, swelling, tenderness. Ear canals are clear without swelling or drainage. TMs pearly castrejon , no redness, no bulging, normal landmarks, no perforation. NOSE: atraumatic, no external swelling. clear rhinorrhea noted. MOUTH/THROAT: mucous membranes moist and pink, posterior pharynx without erythema, swelling, exudate. No trismus or drooling. NECK: soft, supple, full range of motion, no meningismus. CHEST: no distress, lungs clear and equal throughout. Few scattered expiratory wheezes throughout. No crackles or rhonchi. CARDIAC: regular rate and rhythm, no murmur, normal capillary refill, normal pulses. No peripheral edema noted. BACK: full range of motion, no CVA tenderness. EXTREMITIES: full range of motion of all extremities. No redness, no swelling. NEURO: alert and oriented A&O3, no focal deficits, full range of motion of all extremities. PYSCH: appropriate mood, affect. Patient is cooperative. SKIN: pink, warm, dry, no rash. Course - Re-evaluation Re-evalutation: 07/22/17 23:05 Well's Criteria for PE 0.0 points Low risk group: 1.3% chance of PE in an ED population. Another study assigned scores 4 as PE Unlikely and had a 3% incidence of PE. PERC Rule 0 criteria No need for further workup, as <2% chance of PE. If no criteria are positive and clinicians pre-test probability is <15%, PERC Rule criteria are satisfied. Patient is nontoxic appearing with stable vitals. She is here with cough and congestion for approximately 1 week. No fever. On exam she has a few scattered expiratory wheezes. She is not hypoxic and afebrile. Wells criteria she was very low risk for PE, PERC rule negative for PE, PE is very unlikely in this patient, therefore no further provocative testing is needed. Chest x-ray shows no acute abnormality. Patient likely has some mild bronchitis. She will be given penicillin and albuterol/Atrovent breathing treatment in the emergency department will be discharged home with prescription for albuterol inhaler with spacer, as well as prednisone. Follow-up with her doctor if not better in 1 week, sooner for worsening symptoms, high fever, difficulty breathing or swallowing, or for any further concerns. The patient is noted to have elevated blood pressure during today's emergency department visit. The patient was informed of this finding. The patient was instructed that this may be related to pre-hypertension and requires further evaluation with a primary care provider. The patient has no hypertensive symptoms at this time. The patient's emergency department workup and current diagnosis were explained to the patient and or family. Follow-up instructions were provided. Medications if prescribed were discussed. Instructions for when to return to the emergency department including specific worrisome symptoms were discussed with the patient and/or family. - Vital Signs Vital signs: Temp Pulse Resp BP Pulse Ox 98.5 F 72 19 130/62 H 96 07/22/17 20:04 07/22/17 20:04 07/22/17 20:04 07/22/17 20:04 07/22/17 20:04 - Diagnostic Test Radiology reviewed: Image reviewed, Reports reviewed - Negative chest x-ray Discharge - Discharge Clinical Impression: Bronchitis Condition: Stable Disposition: HOME, SELF-CARE Instructions: Bronchitis ([facility]), Family Physicians / Practices Additional Instructions: Take medications as prescribed. Follow-up with your doctor if not better in 1 week, sooner for increasing symptoms, high fever, significant chest pain, significant difficulty breathing, persistent vomiting, or for any further concerns. Your blood pressure was elevated during today's visit. Have this rechecked with your doctor. Please try to stop smoking. Prescriptions: Albuterol Sulfate [Proair HFA Inhalation Aerosol 8.5 gm MDI] 2 puff IH Q4H PRN # 1 mdi PRN Reason: Inhaler, Assist Devices [Space Chamber Plus] 1 each MC ASDIR PRN #1 spacer PRN Reason: Prednisone [Deltasone 20 mg Tablet] 3 tab PO DAILY 5 Days tablet Forms: Elevated Blood Pressure, Smoking Cessation Education Referrals: JAMAR PETTY BAGGAGE AGENT [Primary Care Provider] - Follow up as needed
[2017-07-22] MEDS ORDERED: PREDNISONE 20 MG TABLET ONE (23:31)
[2017-07-23 00:09] VITALS: BP 131/58
== END 2017-07-22 23:45 | disposition home or self-care (01) ==
LOC: ER 19:42
DX: J40 Bronchitis, not specified as acute or chronic (principal); R09.89 Other specified symptoms and signs involving the circulatory and respiratory systems; R05 Cough; R06.2 Wheezing; F17.200 Nicotine dependence, unspecified, uncomplicated; I10 Essential (primary) hypertension; E11.9 Type 2 diabetes mellitus without complications
CPT/HCPCS: 94640; 99284; 71046; J7512; J7620

== ENCOUNTER → 2017-07-30 | Outpatient (CLI) | payer BC ==
--- NOTE | 2017-07-30 10:12 | RADIOLOGY REPORT (SQ) ---
EXAM DESCRIPTION: MRI LT LOWER JOINT WITHOUT COMPLETED DATE/TIME: 07/30/2017 8:16 am REASON FOR STUDY: PAIN IN LEFT HIP (M25.552) M25.552 PAIN IN LEFT HIP COMPARISON: None. TECHNIQUE: Lefth[employer] images acquired and stored on PACS. Multiplanar images to include fat sensitive s equences as T1, fluid sensitive sequences as T2/STIR and gradient echo sequences. Large FOV fat and f luid sensitive sequences include pelvis and opposite hip. LIMITATIONS: None. FINDINGS: BONE CORTEX AND MARROW: No generalized marrow replacement. No occult fracture. No worriso me bone lesions. TARGETED HIP: FEMORAL HEAD: Normal morphology. No large osteophytes. ACETABULUM: No acetabular dysplasia. No subchondral cysts. LABRUM: Increased signal in the superior labrum series 9, image 15 and 16. TROCHANTER: No trochanteric bursal effusion. No edema/fluid at the insertions of the gluteus medius and gluteus minimus. OPPOSITE HIP: Limited evaluation. No worrisome bone lesions. No significant effusion. PELVIS, LOWER LUMBAR SPINE, SACROILIAC JOINTS: PELVIS : No insufficiency/stress fractures. No significant degenerative changes. Sacroiliac joints normal. L SPINE: No significant osteophytes or degenerative changes of the visualized lumbar spine. MUSCLES AND SOFT TISSUES: Adductors and piriformis normal. Abductors and greater trochanteric bursa n ormal without edema or fluid. Iliopsoas bursa without fluid. Hamstring attachments without edema or t ear. PELVIC SOFT TISSUES: No masses or adenopathy. SCIATIC NERVE: Identified, without masses or abnormal signal. OTHER: No other significant finding. IMPRESSION: Superior labral tear. Mild osteoarthritic changes. TECHNICAL DOCUMENTATION: JOB ID: [id number]- All Rights Reserved Reading location - IP/workstation name: [email or web address]
== END ==
LOC: RAD 07:22
PROVIDERS: ATTEND Physician Assistant
DX: M25.552 Pain in left hip (principal)

== ENCOUNTER → 2018-02-23 | Outpatient (CLI) | payer BC ==
[2018-02-23 09:19] LABS: ANION GAP 9 (5-19); BLOOD UREA NITROGEN 14 mg/dL (7-20); CALCIUM 9.2 mg/dL (8.4-10.2); CARBON DIOXIDE 29 mmol/L (22-30); CHLORIDE 105 mmol/L (98-107); GLUCOSE 93 mg/dL (75-110); SODIUM 142.6 mmol/L (137-145)
== END ==
LOC: LAB 08:32
PROVIDERS: ATTEND Orthopaedic Surgery Sports Medicine
DX: Z01.812 Encounter for preprocedural laboratory examination (principal)
CPT/HCPCS: 36415; 80048

== ENCOUNTER 2018-05-06 23:48 | Emergency (ER) | payer BC ==
[2018-05-07 00:08] VITALS: BP 122/63
--- NOTE | 2018-05-07 01:39 | RADIOLOGY REPORT (SQ) ---
EXAM DESCRIPTION: XR ANKLE 3 OR MORE VIEWS COMPLETED DATE/TME: 05/07/2018 00:00 CLINICAL HISTORY: 48 years, Female, fall COMPARISON: None. NUMBER OF VIEWS: TECHNIQUE: LIMITATIONS: None. FINDINGS: There is a questionable avulsion fracture coming off the lateral tarsal bones, seen only on the AP view. There is lateral soft tissue swelling. The ankle mortise appears intact. There is a plantar calcaneal spur. IMPRESSION: Questionable avulsion fracture involving the lateral tarsal bones. Clinical correlation, as to whether the patient has point tenderness in this region, would be helpful. copyright 2010 [employer]- All Rights Reserved
[2018-05-07] MEDS ORDERED: OXYCODONE-ACETAMINOPHEN 5-325 MG TABLET PO ONE (01:46)
[2018-05-07] MEDS ORDERED: ONDANSETRON 4 MG TAB.RAPDIS PO ONE (01:46)
--- NOTE | 2018-05-07 01:50 | ER Document Report ---
HPI - HPI Patient complains to provider of: right ankle injury Time Seen by Provider: 05/07/18 01:34 Pain Level: 3 Context: Patient is a 48-year-old female that comes to the emergency department for chief complaint of right ankle injury. She states she accidentally inverted her foot when walking because she stepped awkwardly. She states she felt a pop and developed pain and swelling afterwards. She denies any other injuries or any other complaints. She is not on a blood thinner. - REPRODUCTIVE Reproductive: DENIES: : Past Medical History - General Information source: Patient - Social History Smoking Status: Former Smoker Drug Abuse: None Lives with: Family Family History: Reviewed & Not Pertinent - Past Medical History Cardiac Medical History: Reports: Hx Hypercholesterolemia, Hx Hypertension Neurological Medical History: Reports: Hx Migraine. Denies: Hx Cerebrovascular Accident, Hx Seizures Endocrine Medical History: Reports: Hx Diabetes Mellitus Type 2 Renal/ Medical History: Denies: Hx Peritoneal Dialysis GI Medical History: Reports: Hx Hepatitis - HEP B, REC'D VACCINE SINCE FOR HEP A & B. Denies: Hx Ulcer Psychiatric Medical History: Reports: Hx Depression Infectious Medical History: Reports: Hx Hepatitis - HEP B, REC'D VACCINE SINCE FOR HEP A & B Past Surgical History: Reports: Hx Cholecystectomy, Hx Gastric Bypass Surgery, Hx Genitourinary Surgery - 2 kidney stones removed. July 2016, Hx Gynecologic Surgery - c section x 2, Hx Hysterectomy, Hx Orthopedic Surgery - left knee partial September 2015, Hx Tubal Ligation - Immunizations Hx Diphtheria, Pertussis, Tetanus Vaccination: Yes Hx Pneumococcal Vaccination: 04/07/13 Vertical Provider Document - CONSTITUTIONAL General Appearance: WD/WN, Mild Distress - patient uncomfortable but was not in distress - INFECTION CONTROL TRAVEL OUTSIDE OF THE [place] IN LAST 30 DAYS: No - HEENT HEENT: Atraumatic, Normal ENT Exam, Normocephalic - NECK Neck: Normal Inspection - RESPIRATORY Respiratory: Breath Sounds Normal, No Respiratory Distress - CARDIOVASCULAR Cardiovascular: Regular Rate, Regular Rhythm - GI/ABDOMEN Gastrointestinal: Abdomen Soft, Abdomen Non-Tender - BACK Back: Normal Inspection - MUSCULOSKELETAL/EXTREMETIES Musculoskeletal/Extremeties: MAEW, FROM, Tender - Soft tissue swelling over the lateral malleolus of the right ankle with tenderness in this location. Normal distal capillary refill and sensation. Normal leg, knee, hip exam on the same side. Unremarkable lower extremity exam otherwise. No open wounds. - NEURO Level of Consciousness: Awake, Alert, Appropriate - DERM Integumentary: Warm, Dry, No Rash Course - Re-evaluation Re-evalutation: Patient's physical examination and x-ray do suggest an avulsion fracture on the right ankle at the lateral malleolus. Discussed options, patient was placed in ankle stirrup with Navin wrap, placed on crutches, I did provide her with a small amount of pain relief because of the fracture on request, discussed close orthopedic follow-up and return precautions. Patient states understanding and agreement. - Vital Signs Vital signs: Temp Pulse Resp BP Pulse Ox 97.8 F 58 L 16 122/63 96 05/07/18 00:06 05/07/18 00:06 05/07/18 00:06 05/07/18 00:06 05/07/18 00:06 Procedures - Immobilization right ankle Immobilizer type: Navin wrap, Ankle stirrup Performed by: PCT Post-Proc Neuro Vasc Exam: Normal Alignment checked and good: Yes Discharge - Discharge Clinical Impression: Avulsion fracture Right ankle injury Qualifiers: Encounter type: initial encounter Qualified Code(s): S99.911A - Unspecified injury of right ankle, initial encounter Condition: Stable Disposition: HOME, SELF-CARE Additional Instructions: There is an avulsion fracture at the ankle. See details on this below. Wear the immobilization, use the crutches, ice, elevate, take anti-inflammatory for pain, take pain medication provided only if needed. Follow-up with the orthopedics referral for additional evaluation and management. Return for any concerning symptoms including severe swelling or pain. Avulsion Fracture of the Ankle There is a small chip fracture in your ankle. This fracture was caused by stretching the joint ligaments, which pulled off a small piece of bone. This injury is treated much the same as a severe sprain. At first, you should elevate, rest, and apply ice packs to the leg. Often, only an ankle brace or tape is necessary while the chip fracture heals. Sometimes a chip fracture of this type requires a cast or walking boot. The treatment plan may change, depending on how your ankle progresses. Chip fractures usually do not fuse back onto the bone, but rather scar down to the bone surface. You will most likely see this bone fragment on future x- rays. It's important that you follow the treatment program as outlined for now, then follow up for re-evaluation as scheduled. Call the doctor or return at once if pain or swelling becomes severe, or if you develop other unusual symptoms. Prescriptions: Morphine Sulfate [Morphine Ir 15 Mg Tablet] 15 mg PO TID #10 tablet Forms: Return to Work Referrals: ANUJA TURNER MD [ACTIVE STAFF] - Follow up in 3-5 days
== END 2018-05-07 03:24 | disposition home or self-care (01) ==
LOC: ER 23:48
DX: S82.891A Other fracture of right lower leg, initial encounter for closed fracture (principal); X50.0XXA Overexertion from strenuous movement or load, initial encounter; Y93.01 Activity, walking, marching and hiking; I10 Essential (primary) hypertension; E11.9 Type 2 diabetes mellitus without complications; Z98.84 Bariatric surgery status
CPT/HCPCS: 99283; 73610; L4350; S0119

== ENCOUNTER 2018-10-11 16:09 | Emergency (ER) | payer BC ==
--- NOTE | 2018-10-11 16:46 | ER Document Report ---
HPI - HPI Patient complains to provider of: Ear pain, eyelid swelling Time Seen by Provider: 10/11/18 16:29 Onset: Other - 2 days Onset/Duration: Persistent Quality of pain: Achy Pain Level: 2 Context: Patient presents complaining of ear pain and a sensation like her ears feel full. Patient complains of sinus congestion and periorbital swelling. Patient complains of eye itching. Patient denies any fever. Patient is concerned that she may be having allergy symptoms. Associated Symptoms: Earache, Rhinnorhea. denies: Fever, Sore throat Exacerbated by: Denies Relieved by: Denies Similar symptoms previously: Yes Recently seen / treated by doctor: No - ROS ROS below otherwise negative: Yes Systems Reviewed and Negative: Yes All other systems reviewed and negative - CONSTITUTIONAL Constitutional: DENIES: Fever, Chills - EENT EENT: REPORTS: Ear Pain, Nasal Drainage-Clear, Congestion, Eye problems. 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 Denies: Hx Cerebrovascular Accident, Hx Seizures Endocrine Medical History: Reports: Hx Diabetes Mellitus Type 2 Renal/ Medical History: Denies: Hx Peritoneal Dialysis GI Medical History: Reports: Hx Hepatitis - HEP B, REC'D VACCINE SINCE FOR HEP A & B. Denies: Hx Ulcer Psychiatric Medical History: Reports: Hx Depression Infectious Medical History: Reports: Hx Hepatitis - HEP B, REC'D VACCINE SINCE FOR HEP A & B Past Surgical History: Reports: Hx Cholecystectomy, Hx Gastric Bypass Surgery, Hx Genitourinary Surgery - 2 kidney stones removed. July 2016, Hx Gynecologic Surgery - c section x 2, Hx Hysterectomy, Hx Orthopedic Surgery - left knee partial September 2015, Hx Tubal Ligation - Immunizations Hx Diphtheria, Pertussis, Tetanus Vaccination: Yes Hx Pneumococcal Vaccination: 04/07/13 Vertical Provider Document - CONSTITUTIONAL Agree With Documented VS: Yes Exam Limitations: No Limitations General Appearance: WD/WN, No Apparent Distress - INFECTION CONTROL TRAVEL OUTSIDE OF THE [place] IN LAST 30 DAYS: No - HEENT HEENT: Atraumatic, Normocephalic. negative: Pharyngeal Exudate, Pharyngeal Tenderness, Pharyngeal Erythema, Tympanic Membrane Red Notes: Patient with bilateral periorbital erythema and mild swelling, patient with air- fluid level noted to right TM. Clear rhinorrhea with swollen nasal congestion. - NECK Neck: Normal Inspection, Supple. negative: Lymphadenopathy-Left, Lymphad enopathy-Right - RESPIRATORY Respiratory: Breath Sounds Normal, No Respiratory Distress - CARDIOVASCULAR Cardiovascular: Regular Rate, Regular Rhythm - BACK Back: Normal Inspection - MUSCULOSKELETAL/EXTREMETIES Musculoskeletal/Extremeties: MAEW - NEURO Level of Consciousness: Awake, Alert, Appropriate Motor/Sensory: No Motor Deficit - DERM Integumentary: Warm, Dry Course - Re-evaluation Re-evalutation: 10/11/18 16:43 Patient presents with symptoms worrisome for allergy symptoms. No concern for periorbital cellulitis. Discussed with patient taking [id number] antihistamine as well as Coricidin HBP to help with congestion symptoms. - Vital Signs Vital signs: Temp Pulse Resp BP Pulse Ox 98.3 F 53 L 16 118/63 95 10/11/18 16:28 10/11/18 16:28 10/11/18 16:28 10/11/18 16:28 10/11/18 16:28 Discharge - Discharge Clinical Impression: Nasal congestion Allergic rhinitis Qualifiers: Allergic rhinitis trigger: unspecified Allergic rhinitis seasonality: unspecified Qualified Code(s): J30.9 - Allergic rhinitis, unspecified Allergic conjunctivitis Qualifiers: Laterality: bilateral Qualified Code(s): H10.13 - Acute atopic conjunctivitis, bilateral Condition: Stable Disposition: HOME, SELF-CARE Instructions: Conjunctivitis, Allergic, Hay Fever ([facility]), Nasal Corticosteroid Inhaler ([facility]) Additional Instructions: Return immediately for any new or worsening symptoms Followup with your primary care provider, call tomorrow to make a followup appointment Continue to take your ponl-wmf-qhyrcul allergy medication You may take Coricidin HBP to help with congestion symptoms. Prescriptions: Fluticasone Propionate [Flonase Nasal [place] 50 Mcg/[place] 16 gm] 2 spray NASL DAILY #1 bottle Olopatadine HCl [Pataday] 1 drop OP DAILY #2.5 ml Forms: Smoking Cessation Education, Return to Work Referrals: JAMAR PETTY NP [Primary Care Provider] - Follow up as needed
[2018-10-11 19:16] VITALS: BP 131/65
== END 2018-10-11 19:22 | disposition home or self-care (01) ==
LOC: ER 16:09
DX: J30.9 Allergic rhinitis, unspecified (principal); R09.81 Nasal congestion; H92.03 Otalgia, bilateral; H57.89 Other specified disorders of eye and adnexa; J34.89 Other specified disorders of nose and nasal sinuses; F17.200 Nicotine dependence, unspecified, uncomplicated; I10 Essential (primary) hypertension; E11.9 Type 2 diabetes mellitus without complications
CPT/HCPCS: 99283

== ENCOUNTER → 2018-12-15 | Outpatient (CLI) | payer BC ==
--- NOTE | 2018-12-16 08:27 | RADIOLOGY REPORT (SQ) ---
EXAM DESCRIPTION: MRI RT UPPER JOINT WITHOUT COMPLETED DATE/TIME: 12/15/2018 2:55 pm REASON FOR STUDY: M25.511 PAIN IN RIGHT SHOULDER M25.511 PAIN IN RIGHT SHOULDER COMPARISON: Recent radiographs. TECHNIQUE: Right shoulder images acquired and stored on PACS. Multiplanar imaging to include fat sen sitive sequences such as T1, water sensitive sequences such as FST2/STIR, cartilage sensitive sequenc es such as FSPD/gradient-echo sequences. LIMITATIONS: None. FINDINGS: BONE MARROW AND CORTEX: No worrisome bone lesions or marrow replacement. No occult fractur es. JOINT OR BURSAL EFFUSION: No significant joint or bursal fluid. No suggestion of loose bodies. GLENO-HUMERAL ARTICULATION: Normal articulation. No subluxation. No cystic change. No osteophytes or cartilage loss. ACROMION AND AC JOINT: No bulky overgrowth. Mild degenerative changes. Subacromial space relative ly preserved. ROTATOR CUFF AND INTERVAL: Calcific tendinosis. No evidence of significant tear or atrophy. No rotator interval tear. No rotator interval thickening to suggest adhesive capsulitis. LABRUM AND BICEPS LABRAL COMPLEX: Intact. No labral tear. Intra-articular long-head biceps tendon n ormal. Distal biceps in normal location in bicipital groove. REMAINDER OF LABRUM AND IGHL : Probable tear in the posterior labrum. Adjacent periscapular ganglion or cysts may be present. Some of this may represent tortuous vessels. PERIARTICULAR AND ADJACENT SOFT TISSUES: As above. No axillary adenopathy. OTHER: No other significant finding. IMPRESSION: 1. Calcific tendinitis in the cuff. No significant tear. 2. Suspicious for tear in the posterior labrum. TECHNICAL DOCUMENTATION: JOB ID: [id number] [email or web address]- All Rights Reserved Reading location - IP/workstation name: [email or web address]
== END ==
LOC: RAD 13:53
PROVIDERS: ATTEND Pain Medicine Interventional Pain Medicine
DX: M75.31 Calcific tendinitis of right shoulder (principal); M25.511 Pain in right shoulder

== ENCOUNTER 2019-03-09 21:50 | Emergency (ER) | payer BC ==
--- NOTE | 2019-03-10 00:35 | RADIOLOGY REPORT (SQ) ---
EXAM DESCRIPTION: XR SHOULDER 2 OR MORE VIEWS COMPLETED DATE/TME: 03/09/2019 00:00 CLINICAL HISTORY: 49 years, Female, fell on left shoulder 4 weeks ago with persistent pain. COMPARISON: None. NUMBER OF VIEWS: TECHNIQUE: LIMITATIONS: None. FINDINGS: 3 views of the left shoulder were obtained. No fracture or dislocation. The acromioclavicular joint appears intact. There is a small amount of calcification in the region of the distal supraspinatus tendon, compatible with supraspinatus calcific tendinosis/tendinitis. There is also some calcification just superior to the glenoid. IMPRESSION: No fracture or dislocation. Supraspinatus calcific tendinosis/tendinitis. copyright 2010 [employer]- All Rights Reserved
[2019-03-10] MEDS ORDERED: KETOROLAC TROMETHAMINE 60 MG/2 ML SDV IM ONE (03:21)
[2019-03-10] MEDS ORDERED: BUTALB/ACETAMINOPHEN/CAFFEINE 1 TAB EACH PO ONE (03:22)
--- NOTE | 2019-03-10 03:29 | ER Document Report ---
ED General - General Chief Complaint: Shoulder Pain Stated Complaint: LEFT SHOULDER PAIN Time Seen by Provider: 03/10/19 03:12 Primary Care Provider: JAMAR PETTY NP [Primary Care Provider] - Follow up as needed Mode of Arrival: Ambulatory TRAVEL OUTSIDE OF THE [place] IN LAST 30 DAYS: No - HPI Onset: Other - 1 month ago Onset/Duration: Gradual Quality of pain: Throbbing Severity: Moderate Pain Level: 3 Similar symptoms previously: No Recently seen / treated by doctor: No Notes: 49 year old female with a history of Migraine Headaches, Chronic Pain, HTN, HLD, and DM here for left shoulder pain since falling and landing on her left shoulder 1 month ago. The patient says she has pain with movement of her left shoulder in most directons but it hurts her the most to move her arm backward. The patient is also here because she is out of [facility] and she has a pretty bad migraine headache. The patient says her current headache is exactly like previous migraine headaches. - Related Data Allergies/Adverse Reactions: cefaclor [From Ceclor] Allergy (Verified 10/11/18 16:13) cephalexin monohydrate [From Keflex] Allergy (Verified 10/11/18 16:13) clindamycin [Clindamycin] Allergy (Verified 10/11/18 16:13) Penicillins Allergy (Verified 10/11/18 16:13) RASH , SWELLING OF THROAT Sulfa (Sulfonamide Antibiotics) Allergy (Verified 10/11/18 16:13) BEE STINGS Allergy (Uncoded 10/11/18 16:13) Swelling of Throat Home Medications: percocet- in pain managaement Past Medical History - Social History Smoking Status: Current Every Day Smoker Frequency of alcohol use: Social Drug Abuse: None Family History: Reviewed & Not Pertinent Patient has suicidal ideation: No Patient has homicidal ideation: No - Past Medical History Cardiac Medical History: Reports: Hx Hypercholesterolemia, Hx Hypertension Neurological Medical History: Reports: Hx Migraine. Denies: Hx Cerebrovascular Accident, Hx Seizures Endocrine Medical History: Reports: Hx Diabetes Mellitus Type 2 Renal/ Medical History: Denies: Hx Peritoneal Dialysis GI Medical History: Reports: Hx Hepatitis - HEP B, REC'D VACCINE SINCE FOR HEP A & B. Denies: Hx Ulcer Psychiatric Medical History: Reports: Hx Depression Infectious Medical History: Reports: Hx Hepatitis - HEP B, REC'D VACCINE SINCE FOR HEP A & B Past Surgical History: Reports: Hx Cholecystectomy, Hx Gastric Bypass Surgery, Hx Genitourinary Surgery - 2 kidney stones removed. July 2016, Hx Gynecologic Surgery - c section x 2, Hx Hysterectomy, Hx Orthopedic Surgery - left knee partial September 2015, Hx Tubal Ligation - Immunizations Hx Diphtheria, Pertussis, Tetanus Vaccination: Yes Hx Pneumococcal Vaccination: 04/07/13 Review of Systems - Review of Systems Constitutional: No symptoms reported EENT: No symptoms reported Cardiovascular: No symptoms reported Respiratory: No symptoms reported Gastrointestinal: Nausea Genitourinary: No symptoms reported Female Genitourinary: No symptoms reported Musculoskeletal: No symptoms reported, Joint pain - left shoulder Skin: No symptoms reported Hematologic/Lymphatic: No symptoms reported Neurological/Psychological: Headaches Physical Exam - Vital signs Vitals: Temp Pulse Resp BP Pulse Ox 98.5 F 61 18 199/83 H 95 03/09/19 22:35 03/09/19 22:35 03/09/19 22:35 03/09/19 22:35 03/09/19 22:35 - Notes Notes: GENERAL: Well-appearing, well-nourished and in no acute distress. HEAD: Atraumatic, normocephalic. EYES: Pupils equal round and reactive to light, extraocular movements intact, sclera anicteric, conjunctiva are normal. ENT: TMs normal, nares patent, oropharynx clear without exudates. Moist mucous membranes. NECK: Normal range of motion, supple without lymphadenopathy or JVD. LUNGS: Breath sounds clear to auscultation bilaterally and equal. No wheezes rales or rhonchi. HEART: Regular rate and rhythm without murmurs, rubs or gallops. ABDOMEN: Soft, nontender, normoactive bowel sounds. No guarding, no rebound. No masses appreciated. EXTREMITIES: Decreased ROM of left shoulder due to pain but patient can move her shoulder in all directions. No pitting or edema. No clubbing or cyanosis. 2+ radial pulses. Normal left arm sensation and strength. NEUROLOGICAL: Cranial nerves II through XII grossly intact. Normal speech, normal gait. PSYCH: Normal mood, normal affect. SKIN: Warm, Dry, normal turgor, no rashes or lesions noted. Course - Re-evaluation Re-evalutation: 03/10/19 03:38 The patient has had left shoulder pain for a month now after she fell and landed it. Xray of her shoulder shows no acute process but possible rotator cuff tendonitis. Patient may have a rotator cuff injury as well given the duration of her shoulder pain. Plan to place patient in a shoulder sling and given IM Toradol in the ER. Patient is on chronic pain medications at home. Patient will also be given Fioricet for her headaches. Patient encouraged to follow up with her PCP and Orthopedics. - Vital Signs Vital signs: Temp Pulse Resp BP Pulse Ox 98.5 F 61 18 199/83 H 95 03/09/19 23:43 03/09/19 23:43 03/09/19 23:43 03/09/19 23:43 03/09/19 23:43 Discharge - Discharge Clinical Impression: Tendinitis, Migraine Shoulder pain Qualifiers: Chronicity: unspecified Laterality: left Qualified Code(s): M25.512 - Pain in left shoulder Condition: Stable Disposition: HOME, SELF-CARE Instructions: Tendonitis ([facility]), Shoulder Injury ([facility]), Migraine Headache ([facility]) Additional Instructions: Use a sling for your shoulder pain. Also use your previously prescribed pain medications and anti-inflammatory medications. Use Fioricet for headaches. Follow up with an Orthopedic Surgeon for your shoulder pain. Prescriptions: Butalb/Acetaminophen/Caffeine [Fioricet (50-325-40 mg) Tablet] 1 tab PO Q8H PRN #30 tab PRN Reason: Referrals: JAMAR PETTY NP [Primary Care Provider] - Follow up as needed ANUJA TURNER MD [ACTIVE STAFF] - Follow up as needed
[2019-03-10 04:02] VITALS: BP 170/83
== END 2019-03-10 04:02 | disposition home or self-care (01) ==
LOC: ER 21:50
DX: G43.909 Migraine, unspecified, not intractable, without status migrainosus (principal); M77.9 Enthesopathy, unspecified; G89.29 Other chronic pain; M25.512 Pain in left shoulder; F17.200 Nicotine dependence, unspecified, uncomplicated; I10 Essential (primary) hypertension; E78.00 Pure hypercholesterolemia, unspecified; Z88.3 Allergy status to other anti-infective agents; Z88.0 Allergy status to penicillin; Z91.030 Bee allergy status; Z88.2 Allergy status to sulfonamides
CPT/HCPCS: 73030; J3490; J1885; 96374; 99283

== ENCOUNTER 2019-06-07 17:38 | Emergency (ER) | payer BC ==
[2019-06-07] MEDS ORDERED: BUPIVACAINE HCL 0.5%/EPI 1:200000 INJ 1.8 ML CARTRIDGE INJ ONE (18:03)
--- NOTE | 2019-06-07 18:30 | RADIOLOGY REPORT (SQ) ---
EXAM DESCRIPTION: CHEST 2 VIEWS COMPLETED DATE/TIME: 06/07/2019 6:10 pm REASON FOR STUDY: cough COMPARISON: None. EXAM PARAMETERS: NUMBER OF VIEWS: two views TECHNIQUE: Digital Frontal and Lateral radiographic views of the chest acquired. RADIATION DOSE: NA LIMITATIONS: none FINDINGS: LUNGS AND PLEURA: No opacities, masses or pneumothorax. No pleural effusion. MEDIASTINUM AND HILAR STRUCTURES: No masses or contour abnormalities. HEART AND VASCULAR STRUCTURES: Heart normal size. No evidence for failure. BONES: No acute findings. HARDWARE: None in the chest. OTHER: No other significant finding. IMPRESSION: NO ACUTE RADIOGRAPHIC FINDING IN THE CHEST. TECHNICAL DOCUMENTATION: JOB ID: [id number] 2010 [email or web address]- All Rights Reserved Reading location - IP/workstation name: [email or web address]
--- NOTE | 2019-06-07 18:58 | ER Document Report ---
HPI - HPI Time Seen by Provider: 06/07/19 17:51 Pain Level: 5 Context: Patient is a 49-year-old female who presents to the emergency department with a chief complaint of left facial swelling and pain. Patient states that her symptoms started yesterday. Denies any fever or body aches. Patient admits to poor dental hygiene and tooth decay. She has not seen a dentist in regards to her teeth. - ROS Systems Reviewed and Negative: Yes All other systems reviewed and negative - CONSTITUTIONAL Constitutional: DENIES: Fever, Chills - EENT EENT: DENIES: Sore Throat, Ear Pain, Nasal Drainage-Clear, Nasal Drainage- Purulent, Congestion Notes: left upper teeth pain - NEURO Neurology: DENIES: Headache, Weakness, Vision blurred, Dizzinesss / Vertigo - RESPIRATORY Respiratory: DENIES: Trouble Breathing, Coughing - GASTROINTESTINAL Gastrointestinal: DENIES: Nausea, Patient vomiting - REPRODUCTIVE Reproductive: DENIES: : - MUSCULOSKELETAL Musculoskeletal: DENIES: Swelling - slight to upper jaw - DERM Skin Color: Normal Skin Problems: None Past Medical History - General Information source: Patient - Social History Smoking Status: Current Every Day Smoker Frequency of alcohol use: None Drug Abuse: None Family History: Reviewed & Not Pertinent Patient has suicidal ideation: No Patient has homicidal ideation: No - Past Medical History Cardiac Medical History: Reports: Hx Hypercholesterolemia, Hx Hypertension Neurological Medical History: Reports: Hx Migraine. Denies: Hx Cerebrovascular Accident, Hx Seizures Endocrine Medical History: Reports: Hx Diabetes Mellitus Type 2 Renal/ Medical History: Denies: Hx Peritoneal Dialysis GI Medical History: Reports: Hx Hepatitis - HEP B, REC'D VACCINE SINCE FOR HEP A & B. Denies: Hx Ulcer Psychiatric Medical History: Reports: Hx Depression Infectious Medical History: Reports: Hx Hepatitis - HEP B, REC'D VACCINE SINCE FOR HEP A & B Past Surgical History: Reports: Hx Cholecystectomy, Hx Gastric Bypass Surgery, Hx Genitourinary Surgery - 2 kidney stones removed. July 2016, Hx Gynecologic Surgery - c section x 2, Hx Hysterectomy, Hx Orthopedic Surgery - left knee partial September 2015, Hx Tubal Ligation - Immunizations Hx Diphtheria, Pertussis, Tetanus Vaccination: Yes Hx Pneumococcal Vaccination: 04/07/13 Vertical Provider Document - CONSTITUTIONAL Agree With Documented VS: Yes Exam Limitations: No Limitations General Appearance: No Apparent Distress - INFECTION CONTROL TRAVEL OUTSIDE OF THE [place] IN LAST 30 DAYS: No - HEENT HEENT: Atraumatic Mouth Diagram: 1 - multiple teeth with decay - NECK Neck: Normal Inspection - RESPIRATORY Respiratory: Breath Sounds Normal, No Respiratory Distress - CARDIOVASCULAR Cardiovascular: Regular Rate, Regular Rhythm, No Murmur Pulses: Normal: Radial - MUSCULOSKELETAL/EXTREMETIES Musculoskeletal/Extremeties: FROM - NEURO Level of Consciousness: Awake, Alert, Appropriate Motor/Sensory: No Motor Deficit, No Sensory Deficit, No Pronator Drift - DERM Integumentary: Warm, Dry, No Rash Course - Re-evaluation Re-evalutation: 06/07/19 20:10 Maxillary block done with Dr. Lloyd at bedside. 06/07/19 21:36 Patient had to be injected multiple times with bupivacaine to help with her pain. I was finally able to get her pain under control with the bupivacaine. Patient states that she will follow-up with the dentist. She will be started on metronidazole, as she is allergic to multiple antibiotics. Patient states that she has been on metronidazole before for dental pain. Verified via pharmacy records. Patient's blood pressure is elevated. Patient states that she took her blood pressure medication 30 minutes ago. Her blood pressure is also most likely elevated due to her vital signs being taken while she was still in pain. At this current time, she denies any pain and states that she is rather comfortable. x Airway is patent. Follow-up precautions were given. Verbal discharge instructions were given to the patient. They verbalized understanding. They are stable for discharge. - Vital Signs Vital signs: Temp Pulse Resp BP Pulse Ox 98.2 F 62 20 211/88 H 97 06/07/19 17:43 06/07/19 17:43 06/07/19 17:43 06/07/19 17:43 06/07/19 17:43 Discharge - Discharge Clinical Impression: Tooth pain, Facial swelling Condition: Stable Disposition: HOME, SELF-CARE Additional Instructions: You were seen today in the emergency department for facial swelling and dental pain. Please start your antibiotics as prescribed. [facility] visit. Your swelling is most likely due to an infected tooth. If your symptoms get worse, please return to the emergency department. You are being sent home with [place], medication for pain. You can take 1 tablet every 4-6 hours as needed. Prescriptions: Metronidazole 500 mg PO TID 7 Days #21 tablet Forms: Return to Work Referrals: MAICO VALENTE PA-C [PHYSICIAN MEDICAL STAFFING COORDINATOR] - Follow up as needed [facility] [Provider Group] - Follow up in 1 week
[2019-06-07] MEDS ORDERED: BUPIVACAINE HCL 0.25% /EPINEPHRINE INJ/PF 30 ML SDV INFIL PRN (20:20)
[2019-06-07] MEDS ORDERED: BUPIVACAINE HCL 0.5%-EPI 1:200000 INJ/PF 30 ML VIAL INJ ONE (20:30)
[2019-06-07] MEDS ORDERED: METRONIDAZOLE 500 MG TABLET PO ONE (21:08)
[2019-06-07] MEDS ORDERED: HYDROCODONE/ACETAMINOPHEN 5-325 MG (6 TAB/ER DISP) PO PRN (21:10)
[2019-06-07 21:43] VITALS: BP 193/87
== END 2019-06-07 21:47 | disposition home or self-care (01) ==
LOC: ER 17:38
DX: K08.9 Disorder of teeth and supporting structures, unspecified (principal); K02.9 Dental caries, unspecified; R22.0 Localized swelling, mass and lump, head; F17.200 Nicotine dependence, unspecified, uncomplicated; E78.00 Pure hypercholesterolemia, unspecified; I10 Essential (primary) hypertension; E11.9 Type 2 diabetes mellitus without complications; Z88.1 Allergy status to other antibiotic agents; Z90.49 Acquired absence of other specified parts of digestive tract; Z98.84 Bariatric surgery status
CPT/HCPCS: 99283; 71046; 64400; J3490 ×2

== ENCOUNTER 2019-07-06 14:59 | Emergency (ER) | payer BC ==
[2019-07-06 15:09] VITALS: BP 239/91
[2019-07-06] MEDS ORDERED: BUPIVACAINE HCL 0.5 % INJ/PF 30 ML SDV INJ ONE (15:11)
[2019-07-06] MEDS ORDERED: METRONIDAZOLE 500 MG TABLET PO ONE (15:12)
[2019-07-06] MEDS ORDERED: OXYCODONE-ACETAMINOPHEN 5-325 MG TABLET PO ONE (15:12)
[2019-07-06] MEDS ORDERED: LIDOCAINE 1% INJ-PF (10 MG/ML) 30 ML SDV INFIL ONE (15:12)
--- NOTE | 2019-07-06 15:35 | ER Document Report ---
HPI - HPI Time Seen by Provider: 07/06/19 15:02 Pain Level: 5 Notes: 49-year-old female patient presented to the emergency department chief complaint of dental pain. Patient reports significant pain around tooth #1, 2, 3 and 4. She states that she has been unable to get into her dentist. She has multiple medication allergies to antibiotics. The last time she has a dental infection she was placed on Levaquin and Flagyl. She is requesting a dental block. - CONSTITUTIONAL Constitutional: DENIES: Fever, Chills - REPRODUCTIVE Reproductive: DENIES: : Past Medical History - General Information source: Patient - Social History Smoking Status: Current Every Day Smoker Family History: Reviewed & Not Pertinent Patient has suicidal ideation: No Patient has homicidal ideation: No - Past Medical History Cardiac Medical History: Reports: Hx Hypercholesterolemia, Hx Hypertension Neurological Medical History: Reports: Hx Migraine. Denies: Hx Cerebrovascular Accident, Hx Seizures Endocrine Medical History: Reports: Hx Diabetes Mellitus Type 2 Renal/ Medical History: Denies: Hx Peritoneal Dialysis GI Medical History: Reports: Hx Hepatitis - HEP B, REC'D VACCINE SINCE FOR HEP A & B. Denies: Hx Ulcer Psychiatric Medical History: Reports: Hx Depression Infectious Medical History: Reports: Hx Hepatitis - HEP B, REC'D VACCINE SINCE FOR HEP A & B Past Surgical History: Reports: Hx Cholecystectomy, Hx Gastric Bypass Surgery, Hx Genitourinary Surgery - 2 kidney stones removed. July 2016, Hx Gynecologic Surgery - c section x 2, Hx Hysterectomy, Hx Orthopedic Surgery - left knee p artial September 2015, Hx Tubal Ligation - Immunizations Hx Diphtheria, Pertussis, Tetanus Vaccination: Yes Hx Pneumococcal Vaccination: 04/07/13 Vertical Provider Document - CONSTITUTIONAL Notes: PHYSICAL EXAMINATION: GENERAL: Well-appearing, well-nourished and in no acute distress. HEAD: Atraumatic, normocephalic. EYES: Pupils equal round extraocular movements intact, conjunctiva are normal. ENT: Nares patent, erythema surrounding tooth #1, 2, 3 and 4, multiple broken teeth noted. No obvious abscess noted. No trismus, no evidence of Ernesto's angina. NECK: Normal range of motion LUNGS: No respiratory distress Musculoskeletal: Normal range of motion NEUROLOGICAL: Normal speech, normal gait. PSYCH: Normal mood, normal affect. SKIN: Warm, Dry, normal turgor, no rashes or lesions noted. - INFECTION CONTROL TRAVEL OUTSIDE OF THE [place] IN LAST 30 DAYS: No Course - Re-evaluation Re-evalutation: Dental block performed per patient request. Good anesthesia achieved. Patient will be discharged on antibiotics and pain control. - Vital Signs Vital signs: Temp Pulse Resp BP Pulse Ox 98.4 F 62 18 239/91 H 94 07/06/19 15:06 07/06/19 15:06 07/06/19 15:06 07/06/19 15:06 07/06/19 15:06 Discharge - Discharge Clinical Impression: Dental infection Condition: Stable Disposition: HOME, SELF-CARE Additional Instructions: You have been seen for dental pain. It is very important that you follow-up with a dentist for definitive care. Please return if you develop fever greater than 101, swelling in your face, vomiting, difficulty breathing or swallowing, or any other symptoms that are concerning to you. For pain you should take ibuprofen 600 mg every 6 hours as needed. [facility] [phone] Prescriptions: Metronidazole [Flagyl 500 mg Tablet] 500 mg PO Q6H #28 tablet Levofloxacin [Levaquin 500 mg Tablet] 500 mg PO DAILY #7 tablet Hydrocodone/Acetaminophen [[place] 5-325 mg Tablet] 1 tab PO Q4H PRN #10 tablet PRN Reason: For Pain
== END 2019-07-06 15:46 | disposition home or self-care (01) ==
LOC: ER 14:59
DX: K04.7 Periapical abscess without sinus (principal); F17.200 Nicotine dependence, unspecified, uncomplicated; E11.9 Type 2 diabetes mellitus without complications; I10 Essential (primary) hypertension; Z88.1 Allergy status to other antibiotic agents
CPT/HCPCS: 99282; 64400; J3490 ×2

== ENCOUNTER 2019-07-18 11:32 | Emergency (ER) | payer BC ==
--- NOTE | 2019-07-18 12:29 | ER Document Report ---
ED Medical Screen (RME) - General Chief Complaint: Numbness of Arm Stated Complaint: HAND NUMBNESS Time Seen by Provider: 07/18/19 12:20 Primary Care Provider: JAMAR PETTY NP [Primary Care Provider] - Follow up as needed Notes: HPI: 49-year-old female with history of hypertension high cholesterol diabetes chronic pain and neuropathy presenting for numbness and weakness in the right upper extremity. Patient states she got home from work last night and was fine, she was outside smoking a cigarette and playing a video game. States she fell asleep and woke up approximately an hour later and a sitting position. States that she was unable to extend the right hand at the wrist at that time, felt numbness and tingling in all the fingertips as well as going up the right arm to the level of the shoulder. No chest pain shortness of breath. No headache vision change. No dizziness. No difficulty with gait. No incontinence. I have greeted and performed a rapid initial assessment of this patient. A comp rehensive ED assessment and evaluation of the patient, analysis of test results and completion of the medical decision making process will be conducted by additional ED providers PHYSICAL EXAMINATION: Patient with subjective decreased sensation over the lateral aspect of the right upper arm in the triceps region as well as in the dorsal and volar forearm. Radial and ulnar pulses are present and equal bilateral upper extremities. Patient with some difficulty extending the fingers of the right hand as well as abducting the thumb. She states she is unable to extend at the right hand at the wrist but is able to flex at the wrist. I have greeted and performed a rapid initial assessment of this patient. A comprehensive ED assessment and evaluation of the patient, analysis of test results and completion of medical decision making process will be conducted by an additional ED providers. TRAVEL OUTSIDE OF THE [place] IN LAST 30 DAYS: No - Related Data Allergies/Adverse Reactions: cefaclor [From Ceclor] Allergy (Verified 07/18/19 11:48) cephalexin monohydrate [From Keflex] Allergy (Verified 07/18/19 11:48) clindamycin [Clindamycin] Allergy (Verified 07/18/19 11:48) Penicillins Allergy (Verified 07/18/19 11:48) RASH , SWELLING OF THROAT Sulfa (Sulfonamide Antibiotics) Allergy (Verified 07/18/19 11:48) BEE STINGS Allergy (Uncoded 07/18/19 11:48) Swelling of Throat Past Medical History - Social History Frequency of alcohol use: None Drug Abuse: None - Past Medical History Cardiac Medical History: Reports: Hx Hypercholesterolemia, Hx Hypertension Neurological Medical History: Reports: Hx Migraine. Denies: Hx Cerebrovascular Accident, Hx Seizures Endocrine Medical History: Reports: Hx Diabetes Mellitus Type 2 Renal/ Medical History: Denies: Hx Peritoneal Dialysis GI Medical History: Reports: Hx Hepatitis - HEP B, REC'D VACCINE SINCE FOR HEP A & B. Denies: Hx Ulcer Psychiatric Medical History: Reports: Hx Depression Infectious Medical History: Reports: Hx Hepatitis - HEP B, REC'D VACCINE SINCE FOR HEP A & B Past Surgical History: Reports: Hx Cholecystectomy, Hx Gastric Bypass Surgery, Hx Genitourinary Surgery - 2 kidney stones removed. July 2016, Hx Gynecologic Surgery - c section x 2, Hx Hysterectomy, Hx Orthopedic Surgery - left knee partial September 2015, Hx Tubal Ligation - Immunizations Hx Diphtheria, Pertussis, Tetanus Vaccination: Yes Physical Exam - Vital signs Vitals: Temp Pulse Resp BP Pulse Ox 98.0 F 57 L 16 157/76 H 97 07/18/19 11:40 07/18/19 11:40 07/18/19 11:40 07/18/19 11:40 07/18/19 11:40 Course - Vital Signs Vital signs: Temp Pulse Resp BP Pulse Ox 98.0 F 57 L 16 157/76 H 97 07/18/19 11:40 07/18/19 11:40 07/18/19 11:40 07/18/19 11:40 07/18/19 11:40 Doctor's Discharge - Discharge Referrals: JAMAR PETTY NP [Primary Care Provider] - Follow up as needed
[2019-07-18 12:55] LABS: ABSOLUTE BASOPHILS # (AUTO) 0.1 10^3/uL (0.0-0.2); ABSOLUTE EOSINOPHILS # (AUTO) 0.2 10^3/uL (0.0-0.6); ABSOLUTE MONOCYTES (AUTO) 0.8 10^3/uL (0.1-1.4); EOSINOPHILS % (AUTO) 1.7 % (0-6); HEMATOCRIT 38.3 % (36.0-47.0); PLATELET COUNT 333 10^3/uL (150-450); TOTAL CELLS COUNTED % (AUTO) 100 %
[2019-07-18 13:17] LABS: ALBUMIN 3.4 g/dL (3.5-5.0); ALKALINE PHOSPHATASE 72 U/L (38-126); ASPARTATE AMINO TRANSFERASE 26 U/L (14-36); BILIRUBIN,DIRECT 0.3 mg/dL (0.0-0.4); BILIRUBIN,TOTAL 0.3 mg/dL (0.2-1.3); BLOOD UREA NITROGEN 13 mg/dL (7-20); CALCIUM 8.4 mg/dL (8.4-10.2); CHLORIDE 104 mmol/L (98-107); GLUCOSE 84 mg/dL (75-110)
[2019-07-18 13:23] LABS: CARBON DIOXIDE 29 mmol/L (22-30)
[2019-07-18 13:24] LABS: ABSOLUTE LYMPHOCYTES (AUTO) 1.3 10^3/uL (0.5-4.7); ABSOLUTE NEUT (AUTO) 7.1 10^3/uL (1.7-8.2); LYMPHOCYTES % (AUTO) 13.4 % (13-45); MEAN CORPUSCULAR HEMOGLOBIN 32.2 pg (27.0-33.4); MEAN CORPUSCULAR VOLUME 95 fl (80-97); RED BLOOD COUNT 4.04 10^6/uL (3.72-5.28); RED CELL DISTRIBUTION WIDTH 17.5 % (11.5-14.0); SEGMENTED NEUTROPHILS % (AUTO) 75.9 % (42-78); WHITE BLOOD COUNT 9.4 10^3/uL (4.0-10.5)
[2019-07-18 13:25] LABS: ANION GAP 2 (5-19)
--- NOTE | 2019-07-18 13:36 | RADIOLOGY REPORT (SQ) ---
EXAM DESCRIPTION: CT HEAD WITHOUT IMAGES COMPLETED DATE/TIME: 07/18/2019 1:23 pm REASON FOR STUDY: weakness COMPARISON: None. TECHNIQUE: Axial images acquired through the brain without intravenous contrast. Images reviewed wi th bone, brain and subdural windows. Additional sagittal and coronal reconstructions were generated. Images stored on PACS. All CT scanners at this facility use dose modulation, iterative reconstruction, and/or weight based d osing when appropriate to reduce radiation dose to as low as reasonably achievable (ALARA). [facility]: Dose Right [facility]: CareDose [facility]: Dose Right [facility]: Teradose 4D [facility]: [employer] RADIATION DOSE: CT Rad equipment meets quality standard of care and radiation dose reduction techniq ues were employed. CTDIvol: 53.2 mGy. DLP: 1017 mGy-cm. mGy. LIMITATIONS: None. FINDINGS: VENTRICLES: Normal size and contour. CEREBRUM: No masses. No hemorrhage. No midline shift. No evidence for acute infarction. Normal gra y/white matter differentiation. No areas of low density in the white matter. CEREBELLUM: No masses. No hemorrhage. No alteration of density. No evidence for acute infarction. EXTRAAXIAL SPACES: No fluid collections. No masses. ORBITS AND GLOBE: No intra- or extraconal masses. Normal contour of globe without masses. CALVARIUM: No fracture. PARANASAL SINUSES: No fluid or mucosal thickening. SOFT TISSUES: No mass or hematoma. OTHER: No other significant finding. IMPRESSION: NORMAL BRAIN CT WITHOUT CONTRAST. EVIDENCE OF ACUTE STROKE: NO. COMMENT: Quality ID # [id number]: Final reports with documentation of one or more dose reduction techniques (e.g., Automated exposure control, adjustment of the mA and/or kV according to patient size, use of iterative reconstruction technique) TECHNICAL DOCUMENTATION: JOB ID: [id number] 2010 [employer]- All Rights Reserved Reading location - IP/workstation name: [email or web address]
--- NOTE | 2019-07-18 13:37 | RADIOLOGY REPORT (SQ) ---
EXAM DESCRIPTION: CT CERVICAL SPINE WITHOUT IMAGES COMPLETED DATE/TIME: 07/18/2019 1:23 pm REASON FOR STUDY: weakness COMPARISON: None. TECHNIQUE: Axial images acquired through the cervical spine without intravenous contrast. Images re viewed with lung, soft tissue and bone windows. Reconstructed coronal and sagittal MPR images review ed. Images stored on PACS. All CT scanners at this facility use dose modulation, iterative reconstruction, and/or weight based d osing when appropriate to reduce radiation dose to as low as reasonably achievable (ALARA). [facility]: Dose Right [facility]: CareDose [facility]: Dose Right [facility]: Teradose 4D [facility]: [employer] RADIATION DOSE: CT Rad equipment meets quality standard of care and radiation dose reduction techniq ues were employed. CTDIvol: 16.2 mGy. DLP: 291 mGy-cm. mGy. LIMITATIONS: Motion artifact. FINDINGS: ALIGNMENT: Anatomic. MINERALIZATION: Normal. VERTEBRAL BODIES: No fractures or dislocation. DISCS: No significant disc disease. FACETS, LATERAL MASSES, POSTERIOR ELEMENTS: No fractures. No dislocation. No acute findings. HARDWARE: None in the spine. VISUALIZED RIBS: No fractures. LUNG APICES AND SOFT TISSUES: No significant or acute findings. OTHER: No other significant finding. IMPRESSION: NO ACUTE OR SIGNIFICANT FINDINGS IN THE CERVICAL SPINE. TECHNICAL DOCUMENTATION: JOB ID: [id number] Quality ID # [id number]: Final reports with documentation of one or more dose reduction techniques (e.g., Au tomated exposure control, adjustment of the mA and/or kV according to patient size, use of iterative reconstruction technique) 2010 [employer]- All Rights Reserved Reading location - IP/workstation name: [email or web address]
--- NOTE | 2019-07-18 15:59 | ER Document Report ---
ED General - General Chief Complaint: Numbness of Arm Stated Complaint: HAND NUMBNESS Time Seen by Provider: 07/18/19 12:20 Primary Care Provider: JAMAR PETTY NP [Primary Care Provider] - Follow up as needed Information source: Patient Notes: Triage note ; pt ambulated to the triage room without difficulty. pt is sitting in chair and able to speak in clear and complete sentences. pt's respirations are even and non-labored. pt c/o numbness and heaviness to the right arm. pt reports that these symptoms started last night around 2330. pt denies any accident or injury to her right arm. pt is able to move her right arm. pt reports she is not able to extend her wrist. pt is able to screw remover her fingers on the right hand. be denies any strength to the right extremity. pt's right extremity in warm to the touch with a palpable pulse. pt is in no acute distress at this time. My note; 49-year-old female arrives by POV as driven by her who is waiting in the car in the parking lot. Because of the coronavirus pandemic this time of the year no visitors are allowed in the hospital or ER. 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 She fell asleep and awoke with numbness of her right forearm and wrist and hand. She has edema of her right hand. She does not know if she fell asleep with her arm over a chair or not. Patient is concerned because a uncle who was 56 years old last year from a stroke. Patient has good speech moves all other extremities well with good sensation and she has minor abrasions over her right hand and knuckles. Patient denies any trauma to her right hand. She reports she is now has been at least 14 to 15 hours with similar symptoms. I just got here around 1600 today and saw this patient and her CT of head and neck were negative her labs were negative. I will x-ray her right hand and wrist. This appears to be some sort of wrist drop to the right hand and wrist. TRAVEL OUTSIDE OF THE [place] IN LAST 30 DAYS: No - HPI Onset: This morning Onset/Duration: Persistent Quality of pain: Pressure, Other - Numbness of right hand wrist and forearm Severity: Mild Pain Level: 1 Associated symptoms: Weakness - To right upper extremity Exacerbated by: Denies Relieved by: Denies Similar symptoms previously: No Recently seen / treated by doctor: No - Related Data Allergies/Adverse Reactions: cefaclor [From Ceclor] Allergy (Verified 07/18/19 11:48) cephalexin monohydrate [From Keflex] Allergy (Verified 07/18/19 11:48) clindamycin [Clindamycin] Allergy (Verified 07/18/19 11:48) Penicillins Allergy (Verified 07/18/19 11:48) RASH , SWELLING OF THROAT Sulfa (Sulfonamide Antibiotics) Allergy (Verified 07/18/19 11:48) BEE STINGS Allergy (Uncoded 07/18/19 11:48) Swelling of Throat Past Medical History - Social History Smoking Status: Current Every Day Smoker Frequency of alcohol use: None Drug Abuse: None Family History: Reviewed & Not Pertinent Patient has suicidal ideation: No Patient has homicidal ideation: No - Past Medical History Cardiac Medical History: Reports: Hx Hypercholesterolemia, Hx Hypertension Neurological Medical History: Reports: Hx Migraine. Denies: Hx Cerebrovascular Accident, Hx Seizures Endocrine Medical History: Reports: Hx Diabetes Mellitus Type 2 Renal/ Medical History: Denies: Hx Peritoneal Dialysis GI Medical History: Reports: Hx Hepatitis - HEP B, REC'D VACCINE SINCE FOR HEP A & B. Denies: Hx Ulcer Psychiatric Medical History: Reports: Hx Depression Infectious Medical History: Reports: Hx Hepatitis - HEP B, REC'D VACCINE SINCE FOR HEP A & B Past Surgical History: Reports: Hx Cholecystectomy, Hx Gastric Bypass Surgery, Hx Genitourinary Surgery - 2 kidney stones removed. July 2016, Hx Gynecologic Surgery - c section x 2, Hx Hysterectomy, Hx Orthopedic Surgery - left knee partial September 2015, Hx Tubal Ligation - Immunizations Hx Diphtheria, Pertussis, Tetanus Vaccination: Yes Hx Pneumococcal Vaccination: 04/07/13 Review of Systems - Review of Systems Constitutional: No symptoms reported EENT: No symptoms reported Cardiovascular: No symptoms reported Respiratory: No symptoms reported Gastrointestinal: No symptoms reported Genitourinary: No symptoms reported Female Genitourinary: No symptoms reported Musculoskeletal: No symptoms reported, Other - r hand numbness and swelling Skin: No symptoms reported Hematologic/Lymphatic: No symptoms reported Neurological/Psychological: No symptoms reported Physical Exam - Vital signs Vitals: Temp Pulse Resp BP Pulse Ox 98.0 F 57 L 16 157/76 H 97 07/18/19 11:40 07/18/19 11:40 07/18/19 11:40 07/18/19 11:40 07/18/19 11:40 Interpretation: Normal - General General appearance: Alert - HEENT Head: Normocephalic Eyes: Normal Conjunctiva: Normal Cornea: Normal Extraocular movements intact: Yes Eyelashes: Normal Pupils: PERRL Sinus: Normal Nasal: Normal Mouth/Lips: Normal Mucous membranes: Normal Pharynx: Normal, Other - tongue midline Neck: Normal - Respiratory Respiratory status: No respiratory distress Chest status: Nontender Breath sounds: Normal Chest palpation: Normal - Cardiovascular Rhythm: Regular Heart sounds: Normal auscultation Murmur: No Friction rub: No Efraín's crunch: No - Floor - Abdominal Inspection: Normal Distension: No distension Tenderness: Nontender Organomegaly: No organomegaly - Back Back: Normal - Extremities General upper extremity: Normal inspection - on left only, 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 - 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 ; 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 General lower extremity: Normal inspection, Nontender Course - Vital Signs Vital signs: Temp Pulse Resp BP Pulse Ox 98.0 F 57 L 16 157/76 H 97 07/18/19 11:40 07/18/19 11:40 07/18/19 11:40 07/18/19 11:40 07/18/19 11:40 - Laboratory Result Diagrams: 07/18/19 12:38 07/18/19 12:38 Laboratory results interpreted by me: 07/18/19 07/18/19 12:38 12:38 RDW 17.5 H Sodium 135.3 L Anion Gap 2 L Creatinine 0.40 L Total Protein 6.0 L Albumin 3.4 L - Diagnostic Test Radiology reviewed: Reports reviewed Critical Care Note - Critical Care Note Total time excluding time spent on procedures (mins): 90 Comments: dr orly duran was called @ case at 1730 and he advised cock up sling and f/u in office and he will work up wrist drop case Discharge - Discharge Clinical Impression: Wrist drop, right wrist Condition: Good Disposition: HOME, SELF-CARE Admitting Provider: dr duran in office Additional Instructions: follow up with Blanche in his office; keep right hand wrist in splint until see n by Erasmo; return to ED as needed; stop smoking if possible Prescriptions: Dexamethasone [Decadron 4 Mg Tablet] 4 mg PO BID #8 tablet Forms: Return to Work Referrals: JAMAR PETTY NP [Primary Care Provider] - Follow up as needed
--- NOTE | 2019-07-18 17:37 | RADIOLOGY REPORT (SQ) ---
EXAM DESCRIPTION: FOREARM RIGHT; WRIST RIGHT 3 VIEWS; HAND RIGHT 3 VIEWS IMAGES COMPLETED DATE/TIME: 07/18/2019 5:27 pm REASON FOR STUDY: numbness COMPARISON: None. NUMBER OF VIEWS: Three-view right wrist, 3 knee right hand, two views right forearm TECHNIQUE: AP lateral oblique views of the wrist and hand. AP and lateral forearm. LIMITATIONS: None. FINDINGS: There is no acute or significant bone, joint or soft tissue abnormality. OTHER: No other significant finding. IMPRESSION: NORMAL STUDY. TECHNICAL DOCUMENTATION: JOB ID: [id number] 2010 [employer]- All Rights Reserved Reading location - IP/workstation name: [email or web address]
--- NOTE | 2019-07-18 17:37 | RADIOLOGY REPORT (SQ) ---
EXAM DESCRIPTION: FOREARM RIGHT; WRIST RIGHT 3 VIEWS; HAND RIGHT 3 VIEWS IMAGES COMPLETED DATE/TIME: 07/18/2019 5:27 pm REASON FOR STUDY: numbness COMPARISON: None. NUMBER OF VIEWS: Three-view right wrist, 3 knee right hand, two views right forearm TECHNIQUE: AP lateral oblique views of the wrist and hand. AP and lateral forearm. LIMITATIONS: None. FINDINGS: There is no acute or significant bone, joint or soft tissue abnormality. OTHER: No other significant finding. IMPRESSION: NORMAL STUDY. TECHNICAL DOCUMENTATION: JOB ID: [id number] 2010 [employer]- All Rights Reserved Reading location - IP/workstation name: [email or web address]
--- NOTE | 2019-07-18 17:37 | RADIOLOGY REPORT (SQ) ---
EXAM DESCRIPTION: FOREARM RIGHT; WRIST RIGHT 3 VIEWS; HAND RIGHT 3 VIEWS IMAGES COMPLETED DATE/TIME: 07/18/2019 5:27 pm REASON FOR STUDY: numbness COMPARISON: None. NUMBER OF VIEWS: Three-view right wrist, 3 knee right hand, two views right forearm TECHNIQUE: AP lateral oblique views of the wrist and hand. AP and lateral forearm. LIMITATIONS: None. FINDINGS: There is no acute or significant bone, joint or soft tissue abnormality. OTHER: No other significant finding. IMPRESSION: NORMAL STUDY. TECHNICAL DOCUMENTATION: JOB ID: [id number] 2010 [employer]- All Rights Reserved Reading location - IP/workstation name: [email or web address]
[2019-07-18] MEDS ORDERED: ASPIRIN 81 MG TABLET, CHEWABLE PO ONE (17:41)
[2019-07-18] MEDS ORDERED: DEXAMETHASONE 4 MG TABLET PO ONE (17:41)
[2019-07-18 18:52] VITALS: BP 148/66
== END 2019-07-18 18:55 | disposition home or self-care (01) ==
LOC: ER 11:32
DX: M21.331 Wrist drop, right wrist (principal); S60.511A Abrasion of right hand, initial encounter; X58.XXXA Exposure to other specified factors, initial encounter; R20.0 Anesthesia of skin; R53.1 Weakness; I10 Essential (primary) hypertension; E11.9 Type 2 diabetes mellitus without complications; F17.210 Nicotine dependence, cigarettes, uncomplicated; Z82.3 Family history of stroke; Z88.1 Allergy status to other antibiotic agents; Z88.0 Allergy status to penicillin; Z88.2 Allergy status to sulfonamides; Z91.030 Bee allergy status
CPT/HCPCS: 99291; 99292; 36415; 82550; 84443; 85025; 80053; 84484; 73090; 73130; 73110; 70450; 72125; J8540

== ENCOUNTER → 2019-12-09 | Outpatient (CLI) | payer BC ==
[2019-12-09 10:43] VITALS: BP 140/68
--- NOTE | 2019-12-09 10:43 | ER RDC ASSESSMENT REPORT ---
Intake - In the Last 14 days Have you traveled outside [place]?: No Have you been in close contact with someone CONFIRMED: Yes Worked in Healthcare?: No - Symptoms Subjective Fever(Likely feverish): No Chills: No Muscule Aches: No Runny Nose: No Sore Throat: Yes Cough (New or worsening chronic cough): Yes Shortness of breath: No Nausea or Vomiting: No Headache: No Abdominal Pain: No Diarrhea(3 or more loose stools in last 24 hours): No - Do you have any of the following Chronic lung disease: Asthma or emphysema or COPD: No Cystic Fibrosis: No Diabetes: Yes High Blood Pressure: Yes Cardiovascular Disease: Yes Chronic Kidney Disease: No Chronic Liver Disease: No Chronic blood disorder like Sickle Cell Disease: No Weak immune system due to disease or medication: No Neurologic condition that limits movement: Yes Neurological Condition Comment: depression, chronic pain Developmental delay - Moderate to Severe: No Recent (within past 2 weeks) or current : No Morbid Obesity (>100 pounds over ideal weight): No - Objective Temperature: 97.3 F Pulse Rate: 58 Respiratory Rate: 18 Blood Pressure: 140/68 O2 Sat by Pulse Oximetry: 96 Objective: Given above, testing performed: If Testing Performed: Test Specimen Type Sent to General - General Information source: Patient Notes: Patient presents to the RTC for screening for the coronavirus. Patient reports recent exposure at work. Patient has had sore throat and cough. Patient does have diabetes, high blood pressure cholesterol and is a current smoker - Related Data Allergies/Adverse Reactions: cefaclor [From Ceclor] Allergy (Verified 07/18/19 11:48) cephalexin monohydrate [From Keflex] Allergy (Verified 07/18/19 11:48) clindamycin [Clindamycin] Allergy (Verified 07/18/19 11:48) Penicillins Allergy (Verified 07/18/19 11:48) RASH , SWELLING OF THROAT Sulfa (Sulfonamide Antibiotics) Allergy (Verified 07/18/19 11:48) BEE STINGS Allergy (Uncoded 07/18/19 11:48) Swelling of Throat Past Medical History - General Information source: Patient - Social History Smoking Status: Current Every Day Smoker Family History: Reviewed & Not Pertinent - Past Medical History Cardiac Medical History: Reports: Hx Hypercholesterolemia, Hx Hypertension Denies: Hx Heart Attack Pulmonary Medical History: Denies: Hx Asthma Neurological Medical History: Reports: Hx Migraine. Denies: Hx Cerebrovascular Accident, Hx Seizures Endocrine Medical History: Reports: Hx Diabetes Mellitus Type 2 Renal/ Medical History: Denies: Hx Peritoneal Dialysis GI Medical History: Reports: Hx Hepatitis - HEP B, REC'D VACCINE SINCE FOR HEP A & B. Denies: Hx Hiatal Hernia, Hx Ulcer Psychiatric Medical History: Reports: Hx Depression Infectious Medical History: Reports: Hx Hepatitis - HEP B, REC'D VACCINE SINCE FOR HEP A & B Past Surgical History: Reports: Hx Abdominal Surgery - gastric bypass, Hx Section - 2, Hx Cholecystectomy, Hx Gastric Bypass Surgery, Hx Genitourinary Surgery - 2 kidney stones removed. July 2016, Hx Gynecologic Surgery - c section x 2, Hx Hysterectomy, Hx Orthopedic Surgery - left knee partial September 2015, Hx Tubal Ligation. Denies: Hx Mastectomy, Hx Open Heart Surgery, Hx Pacemaker Physical Exam - Notes Notes: The patient was evaluated during the global Covid 19 pandemic, and that diagnosis was suspected/considered upon their initial presentation. Their evaluation, treatment and testing was consistent with current guidelines for patients who present with complaints or symptoms that may be related to Covid 19. Full physical exam could not be performed due to covid 19 isolation protocols. Constitutional: Nontoxic appearance, no acute distress Eyes: Nonicteric, extraocular movements intact, sclera clear ENT: Posterior pharynx clear without exudates Cardiovascular: Heart rate and rhythm regular, no JVD Respiratory: Breath sounds clear bilaterally, nonlabored breathing, no use of accessory muscles, no tachypnea Gastrointestinal: Abdomen not distended Muculoskeletal: Moves all extremities well Skin: Normal color Neuro: Awake alert oriented, normal speech Psych: Normal mood and affect Diagnostic Results Laboratory Results: Patient presents with upper respiratory symptoms worrisome for possible Covid 19. Patient does not have emergency worrying symptoms such as difficulty breathing, shortness of breath, chest pain, pressure, confusion or cyanosis. Patient appears suitable for discharge as vital signs are stable and patient is nontoxic in appearance. Good return precautions have been discussed with patient, patient verbalized understanding and is agreeable with discharge plan of care at this time. Patient Education/Counseling Counseling/Education: Patient was provided with discharge information including: As a person under investigation for Covid 19, the [facility] of Health and Human Services, division of public health advises you to adhere to the following guidance until your test results are reported to you. If your test result is positive, you will receive additional information from your provider and your local health department at that time. Remain at home until you are cleared by the health provider or public health authorities. Keep a log of visitors to your home, notify any visitors to your home of your isolation status. If you plan to move to a new address or leave the county, notify the local health department in your County. Call your doctor or seek care if you have an urgent medical need. Before seeking medical care, call ahead to get instructions from the provider before arriving at the medical office clinic or hospital. Notify them that you are being tested for the virus that causes Covid 19 so that arrangements can be made, as necessary, to prevent transmission to others in the healthcare setting. Next, notify the local health department in your county. If a medical emergency arises and you need to call 911, inform the first responders that you are being tested for the virus that causes Covid 19. Next, notify the local health department in your county. RDC Discharge - Discharge Clinical Impression: Encounter for screening laboratory testing for COVID-19 virus, Sore throat Condition: Stable Disposition: Home; Selfcare
== END ==
LOC: RDC 09:41
PROVIDERS: ATTEND Nurse Practitioner Family
DX: Z20.828 Contact with and (suspected) exposure to other viral communicable diseases (principal); R05 Cough; J02.9 Acute pharyngitis, unspecified; I10 Essential (primary) hypertension; E11.9 Type 2 diabetes mellitus without complications; E78.00 Pure hypercholesterolemia, unspecified; F32.9 Major depressive disorder, single episode, unspecified; F17.200 Nicotine dependence, unspecified, uncomplicated; Z88.0 Allergy status to penicillin; Z88.1 Allergy status to other antibiotic agents; Z91.030 Bee allergy status
CPT/HCPCS: 87070; 87880; U0003; C9803; 87635; 99201; 99211

== ENCOUNTER → 2020-01-10 | Outpatient (CLI) | payer BC ==
[2020-01-10 15:17] VITALS: BP 128/60
--- NOTE | 2020-01-10 15:17 | ER RDC ASSESSMENT REPORT ---
Intake - In the Last 14 days Have you traveled outside [place]?: No Have you been in close contact with someone CONFIRMED: Yes Worked in Healthcare?: No - Symptoms Subjective Fever(Wilson feverish): No Chills: No Muscule Aches: Yes Runny Nose: No Sore Throat: No Cough (New or worsening chronic cough): Yes Shortness of breath: No Nausea or Vomiting: No Headache: No Abdominal Pain: No Diarrhea(3 or more loose stools in last 24 hours): No - Do you have any of the following Chronic lung disease: Asthma or emphysema or COPD: Yes Chronic Lung Disease Comment: Chronic smoker's cough Cystic Fibrosis: No Diabetes: Yes High Blood Pressure: Yes Cardiovascular Disease: Yes Chronic Kidney Disease: No Chronic Liver Disease: No Chronic blood disorder like Sickle Cell Disease: No Weak immune system due to disease or medication: No Neurologic condition that limits movement: No Developmental delay - Moderate to Severe: No Recent (within past 2 weeks) or current : No Morbid Obesity (>100 pounds over ideal weight): No Obesity Comment: Height 5 feet 6 inches weight 150 pounds - Objective Temperature: 97.7 F Pulse Rate: 57 Respiratory Rate: 18 Blood Pressure: 128/60 O2 Sat by Pulse Oximetry: 96 Objective: Given above, testing performed: If Testing Performed: Test Specimen Type Sent to General - General Information source: Patient Notes: Patient here at [facility] for cover testing. Patient reports had exposure to someone who tested positive friend/family for COVID. Patient started to have symptoms of worsening cough and muscle aches. And PCP is in [place] Dr. Ovalles and recommended patient get tested for COVID. - Related Data Allergies/Adverse Reactions: cefaclor [From Ceclor] Allergy (Verified 07/18/19 11:48) cephalexin monohydrate [From Keflex] Allergy (Verified 07/18/19 11:48) clindamycin [Clindamycin] Allergy (Verified 07/18/19 11:48) Penicillins Allergy (Verified 07/18/19 11:48) RASH , SWELLING OF THROAT Sulfa (Sulfonamide Antibiotics) Allergy (Verified 07/18/19 11:48) BEE STINGS Allergy (Uncoded 07/18/19 11:48) Swelling of Throat Past Medical History - General Information source: Patient - Social History Smoking Status: Current Every Day Smoker - Smokes a pack and half a day. Smoking Education Provided: Yes - Stop Smoking Family History: Reviewed & Not Pertinent - Past Medical History Cardiac Medical History: Reports: Hx Hypercholesterolemia, Hx Hypertension Denies: Hx Heart Attack Pulmonary Medical History: Denies: Hx Asthma Neurological Medical History: Reports: Hx Migraine. Denies: Hx Cerebrovascular Accident, Hx Seizures Endocrine Medical History: Reports: Hx Diabetes Mellitus Type 2 Renal/ Medical History: Denies: Hx Peritoneal Dialysis GI Medical History: Reports: Hx Hepatitis - HEP B, REC'D VACCINE SINCE FOR HEP A & B. Denies: Hx Hiatal Hernia, Hx Ulcer Psychiatric Medical History: Reports: Hx Depression Infectious Medical History: Reports: Hx Hepatitis - HEP B, REC'D VACCINE SINCE FOR HEP A & B Past Surgical History: Reports: Hx Abdominal Surgery - gastric bypass, Hx Section - 2, Hx Cholecystectomy, Hx Gastric Bypass Surgery, Hx Genitourinary Surgery - 2 kidney stones removed. July 2016, Hx Gynecologic Surgery - c section x 2, Hx Hysterectomy, Hx Orthopedic Surgery - left knee partial September 2015, Hx Tubal Ligation. Denies: Hx Mastectomy, Hx Open Heart Surgery, Hx Pacemaker Physical Exam - General General appearance: Appears well, Alert In distress: None Notes: PHYSICAL EXAMINATION: GENERAL: Well-appearing and in no acute distress. HEAD: Atraumatic, normocephalic. EYES: sclera anicteric, conjunctiva are normal. ENT: nares patent. Moist mucous membranes. NECK: Normal range of motion, supple without lymphadenopathy LUNGS: CTAB and equal. No wheezes rales or rhonchi. Respirations even and unlabored lung sounds clear moist nonproductive cough noted occasionally. HEART: Regular rate and rhythm without murmurs ABDOMEN: Soft, nontender, normal bowel sounds, no guarding. EXTREMITIES: Normal range of motion, no pitting edema. No cyanosis. NEUROLOGICAL: Cranial nerves grossly intact. Normal speech. Normal gait. PSYCH: Normal mood, normal affect. SKIN: Warm, Dry, normal turgor, no rashes or lesions noted Diagnostic Results Laboratory Results: Patient informed of negative rapid strep and negative rapid flu results. Pending strep culture. Pending cover testing results. Patient provided instructions regarding coverage to include: As a person under investigation for Covid 19, the [facility] of Health and Human Services, division of public health advises you to adhere to the following guidance until your test results are reported to you. If your test result is positive, you will receive additional information from your provider and your local health department at that time. Remain at home until you are cleared by the health provider or public health authorities. Keep a log of visitors to your home, notify any visitors to your home of your isolation status. If you plan to move to a new address or leave the county, notify the local health department in your County. Call your doctor or seek care if you have an urgent medical need. Before seeking medical care, call ahead to get instructions from the provider before arriving at the medical office clinic or hospital. Notify them that you are being tested for the virus that causes Covid 19 so that arrangements can be made, as necessary, to prevent transmission to others in the healthcare setting. Next, notify the local health department in your county. If a medical emergency arises and you need to call 911, inform the first responders that you are being tested for the virus that causes Covid 19. Next, notify the local health department in your county. Patient Education/Counseling Counseling/Education: Patient presents with upper respiratory symptoms worrisome for possible Covid 19. Patient does not have emergency worring symptoms such as difficulty breathing, shortness of breath, chest pain, pressure, confusion or cyanosis. Patient appears suitable for discharge. Patient instructed to follow-up with PCP Dr. Ovalles in [place]. To ED for persistent or worsening symptoms. Patient's vital signs are stable and patient is nontoxic in appearance. Good return precautions have been discussed with patient, patient verbalized understanding and is agreeable with discharge plan of care at this time. RDC Discharge - Discharge Condition: Stable Disposition: Home; Selfcare
[2020-01-10 16:30] LABS: A TYPE INFLUENZA AG NEGATIVE (NEGATIVE); B INFLUENZA AG NEGATIVE (NEGATIVE)
== END ==
LOC: RDC 14:35
PROVIDERS: ATTEND Nurse Practitioner Family
DX: Z20.828 Contact with and (suspected) exposure to other viral communicable diseases (principal); M79.10 Myalgia, unspecified site; J41.0 Simple chronic bronchitis; I10 Essential (primary) hypertension; E11.9 Type 2 diabetes mellitus without complications; I25.10 Atherosclerotic heart disease of native coronary artery without angina pectoris; Z88.0 Allergy status to penicillin; Z88.1 Allergy status to other antibiotic agents; Z91.030 Bee allergy status
CPT/HCPCS: 87070; 87880; 87804; U0003; C9803; 87635